=== PATIENT | female | born 1965 | race Caucasian/White ===

== ENCOUNTER 2017-12-24 06:58 | Day surgery (SDC) | payer BC ==
[2017-12-24] MEDS ORDERED: LIDOCAINE 2% MPF 5 ML VIAL ONE (07:18)
[2017-12-24] MEDS ORDERED: NA CHLORIDE 0.9% 500 ML ONE (07:19)
[2017-12-24] MEDS ORDERED: TETRACAINE HCL 0.5% 2ML OPTH ONE (07:19)
[2017-12-24] MEDS ORDERED: BUPIVACAINE 0.25% PF 10 ML VIAL ONE (07:19)
[2017-12-24] MEDS: PHENYLEPHRINE 10% OPTH 5ML ONE ×3 (07:21→07:37)
[2017-12-24] MEDS: CYCLOPENTOLATE 1% OPTH 2 ML ONE ×3 (07:21→07:37)
[2017-12-24] MEDS ORDERED: NS 0.9% VIAL 10 ML ONE (08:08)
[2017-12-24] MEDS ORDERED: EPINEPHRINE/PF 1 MG/ML AMP ONE (08:08)
[2017-12-24] MEDS ORDERED: DUOVISC 1 KIT OPTH ONE (08:09)
[2017-12-24] MEDS ORDERED: BALANCED SALT IRRIG PLAIN 500 ML BTL IRR ONE (08:09)
[2017-12-24] MEDS ORDERED: MOXIFLOXACIN HCL 10 DROPS/ML **OR USE OPTH ONE (08:10)
[2017-12-24] MEDS ORDERED: PROPOFOL 200 MG/20 ML VIAL IV ONE (08:20)
[2017-12-24] MEDS ORDERED: LIDOCAINE 2% INJ, MPF 2 ML 2 ML ONE (08:20)
--- NOTE | 2017-12-24 09:05 | P.BOP ---
Preoperative diagnosis: Polar cataract OS Postoperative diagnosis: Same Primary procedure: Phacoemulsification with IOL OS Estimated blood loss: None Anesthesia: Local (Subtenon's infusion for cataract surgery) Complications: None Implants: ZCB00 +22.5 Transferred to: Other (Day surgery) Condition: Good
--- NOTE | 2017-12-24 20:36 | OP ---
Date of Procedure: 12/24/2017 Surgeon: Amber Fitzpatrick MD Anesthesiologist: 1. Teodora Angela CRNA. 2. Rob Garcia MD. Preoperative Diagnosis: Posterior polar cataract, left eye. Operation Performed: Phacoemulsification with intraocular lens implant, left eye. Anesthesia: Per cataract surgery. Complications: None. Description Of Procedure: In day surgery, the patient was prepped with Betadine and draped. A conju nctival incision was made in the inferior nasal quadrant with Armand scissors. A sub-Tenon block c onsisting of a 1:1 mixture of 2% Xylocaine and 0.25% bupivacaine was placed through the conjunctival incision with a blunt cannula. A Honan balloon was placed over the eye and the patient was transferr ed to the operating room. In the operating room the patient was prepped and draped in the usual sterile fashion for ophthalmic surgery. A lid speculum was placed in the OS. Two paracentesis sites were made superiorly and infer iorly in the limbal cornea. Viscoat was placed in the anterior chamber and a crescent blade was used to make a corneal groove and tunnel, and a keratome was used to enter the anterior chamber. Provisc was placed in the anterior chamber and a 360 degree capsulotomy was performed with a cystitome. The lens was hydrodissected with BSS and rotated freely. The lens was removed with a stop and chop tech nique. 2.56 phaco CDE was used to remove the lens. Residual cortex was removed with the irrigation and aspiration. Provisc was placed in the capsular bag. A ZCB00 +22.5 lens was placed in the capsul ar bag without complications. Irrigation and aspiration was used to remove residual viscoelastic. T he paracentesis sites were hydrated with BSS. The wound and paracentesis sites were inspected and fo und to be watertight. Vigamox 0.07 cc was placed intracamerally at the end of the procedure. The ey e was irrigated with balanced salt solution. The eye was patched with a soft cotton patch and Schmitt me taya shield. The patient was returned to day surgery in good condition. Comments: The lens was hydrodelineated rather than hydrodissected. Discharge Instructions: Ms. Giles is discharged to home in good condition and is to follow up momo Fitzpatrick in the morning. JHL/MODL Voice ID: [id number] Report ID: [id number]
== END 2017-12-24 09:25 | disposition home or self-care (01) ==
LOC: OR 06:58
PROVIDERS: ATTEND Ophthalmology Retina Specialist
PROC: 08RK3JZ Replacement of Left Lens with Synthetic Substitute, Percutaneous Approach (ICD-10-PCS; principal; 2017-12-24 08:30)
DX: H25.042 Posterior subcapsular polar age-related cataract, left eye (principal); K21.9 Gastro-esophageal reflux disease without esophagitis; Z83.511 Family history of glaucoma; Z83.3 Family history of diabetes mellitus
CPT/HCPCS: J0171; J3490

== ENCOUNTER 2020-01-11 18:04 | Emergency (ER) | payer BC ==
--- OUTSIDE RECORDS SUMMARY | 2020-01-11 18:05 | XMS REPORT | Continuity of Care Document ---
:[address] [facility] t Address [address] [place] [address] Care Team Providers Name Role Phone Unavailable Unavailable Unavailable Payers Payer Name Policy Type Policy Number Effective Date Expiration Date S ource Problems This patient has no known problems. Allergies, Adverse Reactions, Alerts Allergy Allergy Status Severity Reaction(s) Onset Inactive Treating Comm ents Source Name Type Date Date Clinician No Known DA Active U [facility] 00:00: d [facility] 00 [facility] Medications This patient has no known medications. Procedures This patient has no known procedures. Results This patient has no known results.
[2020-01-11] MEDS ORDERED: PHENYLEPHRINE 0.5% NOSE 15ML NAS ONE (18:38)
--- NOTE | 2020-01-11 19:06 | EDPHYS ---
Physician Documentation [facility] Name: Cynthia Giles Age: 54 yrs Sex: Female : 1965 Arrival Date: 01/11/2020 Time: 18:06 Bed 13 Private MD: ED Physician Avery Hampton HPI: 01/10 18:20 This 54 yrs old Female presents to ER via EMS with complaints of Nose bleed. pm1 18:20 The patient presents with a nose bleed, causative factors include: previous HX of pm1 nosebleeds. Onset: The symptoms/episode began/occurred 2 hour(s) ago. Modifying factors: The symptoms are alleviated by nothing. the symptoms are aggravated by nothing. Associated signs and symptoms: The patient has no apparent associated signs or symptoms. Severity of symptoms: in the emergency department the symptoms are unchanged despite home interventions. The patient has experienced similar episodes in the past, a few times, with the last episode occurring 3 month(s) ago. 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 - Social history:: Smoking status: Patient reports the use of cigarette tobacco products, smokes one-half pack cigarettes per day. ROS: 18:22 Constitutional: Negative for fever, chills, and weight loss. pm1 18:22 Cardiovascular: Negative for chest pain, palpitations, and edema, Respiratory: Negative for shortness of breath, cough, wheezing, and pleuritic chest pain, Skin: Negative for injury, rash, and discoloration, Neuro: Negative for headache, weakness, numbness, tingling, and seizure. 18:22 ENT: Positive for nose bleed, Negative for sore throat. 18:22 Abdomen/GI: Negative for abdominal pain, nausea, vomiting, and diarrhea. Exam: 18:22 Constitutional: This is a well developed, well nourished patient who is awake, alert, pm1 and in no acute distress. Head/Face: Normocephalic, atraumatic. 18:22 Back: No spinal tenderness. No costovertebral tenderness. Full range of motion. Skin: Warm, dry with normal turgor. Normal color with no rashes, no lesions, and no evidence of cellulitis. MS/ Extremity: Pulses equal, no cyanosis. Neurovascular intact. Full, normal range of motion. 18:22 ENT: Nose: bleeding, is noted from both nares, and is minimal. 18:22 Cardiovascular: Exam negative for acute changes, Rate: normal, Rhythm: regular, Pulses: no pulse deficits are appreciated. 18:22 Respiratory: Exam negative for acute changes, respiratory distress, shortness of breath. 18:22 Neuro: Exam negative for acute changes, Orientation: is normal, Motor: is normal, moves all fours. Vital Signs: 18:15 BP 125 / 70; Pulse 90; Resp 16; Temp 97.6(TE); Pulse Ox 100% on R/A; Weight 58.97 kg; ss Height 5 ft. 4 in. (162.56 cm); Pain 0/10; 19:09 BP 120 / 62; Pulse 86; Resp 15 S; Pulse Ox 100% on R/A; ca1 18:15 Body Mass Index 22.31 (58.97 kg, 162.56 cm) ss MDM: 18:11 Patient medically screened. pm1 19:04 Data reviewed: vital signs. Data interpreted: Pulse oximetry: on room air is 100 %. pm1 Interpretation: normal. Counseling: I had a detailed discussion with the patient and/or guardian regarding: the historical points, exam findings, and any diagnostic results supporting the discharge/admit diagnosis, the need for outpatient follow up, to return to the emergency department if symptoms worsen or persist or if there are any questions or concerns that arise at home. 19:05 ED course: Patient without any further active bleeding with pressure application and pm1 Harvey-Synephrine administered. Patient happy with care and ready to go home. Administered Medications: 18:34 Drug: Harvey-Synephrine [place] 0.5 % 2 sprays Route: Intranasal; Site: both nares; ca1 19:10 Follow up: Response: No adverse reaction; Marked relief of symptoms ca1 Disposition: 01/11 06:42 Co-signature as Attending Physician, Avery Hampton MD I agree with the assessment and kdr plan of care. Disposition: 01/11/20 19:05 Discharged to Home. Impression: Epistaxis. - Condition is Stable. - Discharge Instructions: Nosebleed, Adult. - Medication Reconciliation Form, Thank You Letter, Antibiotic Education, Prescription Opioid Use form. - Follow up: Emergency Department; When: As needed; Reason: Worsening of condition. Follow up: Private Physician; When: As needed; Reason: Worsening of condition. - Problem is new. - Symptoms are resolved. Signatures: Avery Hampton MD MD [facility] Olga Mari RN RN ss Krish Seay NP GLASS INSPECTOR pm1 Latonya Mckoy RN RN ca1 Corrections: (The following items were deleted from the chart) 01/10 19:18 19:05 01/11/2020 19:05 Discharged to Home. Impression: Epistaxis. Condition is Stable. ca1 Forms are Medication Reconciliation Form, Thank You Letter, Antibiotic Education, Prescription Opioid Use. Follow up: Emergency Department; When: As needed; Reason: Worsening of condition. Follow up: Private Physician; When: As needed; Reason: Worsening of condition. Problem is new. Symptoms are resolved. pm1
--- NOTE | 2020-01-11 19:06 | ER ---
Nurse's Notes [facility] Name: Cynthia Giles Age: 54 yrs Sex: Female : 1965 Arrival Date: 01/11/2020 Time: 18:06 Bed 13 Private MD: Diagnosis: Epistaxis Presentation: 01/10 18:15 Chief complaint: Patient states: nose bleed that began at 1720 today. EMS states that ss blood was "flowing" L nare, but is now controlled on arrival. Coronavirus screen: Client denies travel out of the [place] in the last 14 days. Ebola Screen: Patient denies exposure to infectious person. Patient denies travel to an Ebola-affected area in the 21 days before illness onset. Initial Sepsis Screen: Does the patient meet any 2 criteria? No. Patient's initial sepsis screen is negative. Does the patient have a suspected source of infection? No. Patient's initial sepsis screen is negative. Risk Assessment: Do you want to hurt yourself or someone else? Patient reports no desire to harm self or others. Onset of symptoms was January 11, 2020. 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 - Social history:: Smoking status: Patient reports the use of cigarette tobacco products, smokes one-half pack cigarettes per day. Screenin:15 Abuse screen: Denies threats or abuse. Denies injuries from another. Nutritional ca1 screening: No deficits noted. Tuberculosis screening: No symptoms or risk factors identified. Fall Risk None identified. Assessment: 18:15 General: Appears in no apparent distress. comfortable, Behavior is calm, cooperative, ca1 appropriate for age. Pain: Denies pain. Neuro: Level of Consciousness is awake, alert, obeys commands, Oriented to person, place, time, situation. Cardiovascular: Heart tones S1 S2 present Capillary refill < 3 seconds Patient's skin is warm and dry. Respiratory: Airway is patent Respiratory effort is even, unlabored, Respiratory pattern is regular, symmetrical, Breath sounds are clear bilaterally. GI: Abdomen is flat, non-distended, Bowel sounds present X 4 quads. Abd is soft and non tender X 4 quads. : No signs and/or symptoms were reported regarding the genitourinary system. EENT: Nares with bleeding noted bilaterally. Derm: Skin is intact, is healthy with good turgor, Skin is pink, warm \\T\\ dry. Musculoskeletal: Circulation, motion, and sensation intact. Capillary refill < 3 seconds. 19:09 Reassessment: Patient appears in no apparent distress at this time. Patient and/or ca1 family updated on plan of care and expected duration. Pain level reassessed. Patient is alert, oriented x 3, equal unlabored respirations, skin warm/dry/pink. Vital Signs: 18:15 BP 125 / 70; Pulse 90; Resp 16; Temp 97.6(TE); Pulse Ox 100% on R/A; Weight 58.97 kg; ss Height 5 ft. 4 in. (162.56 cm); Pain 0/10; 19:09 BP 120 / 62; Pulse 86; Resp 15 S; Pulse Ox 100% on R/A; ca1 18:15 Body Mass Index 22.31 (58.97 kg, 162.56 cm) ED Course: 18:06 Patient arrived in ED. em1 18:11 Krish Seay NP is PHCP. pm1 18:11 Avery Hampton MD is Attending Physician. pm1 18:12 Olga Mari, RAFFY is Primary Nurse. ss 18:15 Patient has correct armband on for positive identification. Placed in gown. Bed in low ca1 position. Call light in reach. Side rails up X2. Pulse ox on. NIBP on. Warm blanket given. Ice pack to injury. 18:21 Triage completed. ss 18:21 Latonya Mckoy, RN is Primary Nurse. ca1 18:21 Arm band placed on right wrist. ss 19:18 No provider procedures requiring assistance completed. Patient did not have IV access ca1 during this emergency room visit. Administered Medications: 18:34 Drug: Harvey-Synephrine [place] 0.5 % 2 sprays Route: Intranasal; Site: both nares; ca1 19:10 Follow up: Response: No adverse reaction; Marked relief of symptoms ca1 Outcome: 19:05 Discharge ordered by . pm1 19:18 Discharged to home ambulatory, with family. ca1 19:18 Condition: stable 19:18 Discharge instructions given to patient, Instructed on discharge instructions, follow up and referral plans. Demonstrated understanding of instructions, follow-up care. 19:18 Patient left the ED. ca1 Signatures: Kofi Reis em1 Olga Mari, RAFFY RN ss Krish Seay, FLIGHT OPERATION COORDINATOR FLIGHT OPERATION COORDINATOR pm1 Latonya Mckoy RN RN ca1
[2020-01-11 19:30] VITALS: TEMP 97.6; O2SAT 100
[2020-01-11 19:31] VITALS: BP 120/62
== END 2020-01-11 19:18 | disposition home or self-care (01) ==
LOC: ER 18:04
DX: R04.0 Epistaxis (principal); F17.210 Nicotine dependence, cigarettes, uncomplicated
CPT/HCPCS: 99283

== ENCOUNTER 2020-09-14 10:35 | Emergency (ER) | payer BC ==
--- OUTSIDE RECORDS SUMMARY | 2020-09-14 11:21 | XMS REPORT | Continuity of Care Document ---
:1965 Author Organization [facility] t Address [address] [place] [address] Care Team Providers Name Role Phone Unavailable Unavailable Unavailable Payers Payer Name Policy Type Policy Number Effective Date Expiration Date S ource Problems This patient has no known problems. Allergies, Adverse Reactions, Alerts Allergy Allergy Status Severity Reaction(s) Onset Inactive Treating Comm ents Source Name Type Date Date Clinician No Known DA Active U [facility] 00:00: d [facility] 00 [facility] Medications This patient has no known medications. Procedures This patient has no known procedures. Results This patient has no known results.
[2020-09-14 11:25] LABS: Basophils % 1.4 % (0-1.3); Hematocrit 34.5 % (36.0-45.0); Lymphocytes % 34.4 % (15.3-44.8); MPV 7.7 fL (7.6-11.3); RBC Red Blood Cell Count 4.18 M/uL (3.86-4.86)
[2020-09-14] MEDS ORDERED: LIDOCAINE 1% MPF 5 ML VIAL ONE (11:26)
[2020-09-14 11:46] LABS: ALT/SGPT 34 U/L (12-78); AST/SGOT 88 U/L (15-37); Albumin 3.8 g/dL (3.4-5.0); Alkaline Phosphatase 136 U/L (45-117); BUN Blood Urea Nitrogen 7 mg/dL (7-18); Bicarbonate 24 mmol/L (21-32); Bilirubin Total 0.8 mg/dL (0.2-1.0); Glucose Level 112 mg/dL (74-106); Potassium 3.9 mmol/L (3.5-5.1); Protein, Total 8.4 g/dL (6.4-8.2); Sodium Level 140 mmol/L (136-145)
[2020-09-14 12:16] LABS: Protime INR 1.05
--- NOTE | 2020-09-14 12:23 | ER ---
Nurse's Notes [facility] Name: Cynthia Giles Age: 55 yrs Sex: Female : 1965 Arrival Date: 09/14/2020 Time: 10:35 Bed 15 Private MD: Diagnosis: Laceration without foreign body of finger without damage to nail-LEFT INDEX Presentation: 09/14 10:46 Chief complaint: Patient states: stated that she cut off a piece of a bump from her sv left index finger today and the bleeding hasn't stopped since. Stated yesterday her lips started bleeding and today noticed blood in her mouth. Pt's lips are reddened and eyes are reddened. Coronavirus screen: Client denies travel out of the [place] in the last 14 days. At this time, the client does not indicate any symptoms associated with coronavirus-19. Ebola Screen: No symptoms or risks identified at this time. Complicating Factors: There are no complicating factors for this patient. Initial Sepsis Screen: Does the patient meet any 2 criteria? No. Patient's initial sepsis screen is negative. Does the patient have a suspected source of infection? No. Patient's initial sepsis screen is negative. Risk Assessment: Do you want to hurt yourself or someone else? Patient reports no desire to harm self or others. Onset of symptoms was September 14, 2020. 10:46 Method Of Arrival: Ambulatory sv 10:46 Acuity: CHRISTOFER 3 sv Triage Assessment: 10:48 General: Appears in no apparent distress. comfortable, Behavior is calm, cooperative, sv appropriate for age. Pain: Denies pain. Neuro: Level of Consciousness is awake, alert, obeys commands, Oriented to person, place, time, situation, Gait is steady, Speech is normal. Respiratory: Respiratory effort is even, unlabored. Injury Description: Laceration sustained to palmar aspect of distal phalanx of left index finger is 0.5 to 2.5 cm long, is bleeding a small amount. Historical: - Allergies: 10:48 No Known Allergies; sv - PMHx: 10:48 Anemia; sv - PSHx: 10:48 Back; sv - Immunization history:: Client reports receiving the 2nd dose of the Covid vaccine, Client reports receiving the 1st dose of the Covid vaccine. - Social history:: Smoking status: Patient reports the use of cigarette tobacco products, denies chronic smoking, but will smoke occasionally. - Family history:: not pertinent. Screenin:35 Abuse screen: Denies threats or abuse. Denies injuries from another. Nutritional ph screening: No deficits noted. Tuberculosis screening: No symptoms or risk factors identified. Fall Risk None identified. Assessment: 11:27 General: Appears in no apparent distress. comfortable, well groomed, Behavior is calm, ph cooperative, appropriate for age, Denies fever, feeling ill. Pain: Complains of pain in palmar aspect of distal phalanx of left index finger. Neuro: Level of Consciousness is awake, alert, obeys commands, Oriented to person, place, time, situation. Cardiovascular: Capillary refill < 3 seconds in bilateral fingers Patient's skin is warm and dry. Respiratory: Airway is patent Respiratory effort is even, unlabored, Respiratory pattern is regular, symmetrical. GI: Abdomen is round Patient currently denies abdominal pain, diarrhea, nausea, vomiting. EENT: Sclera/Cornea are reddened in right eye and left eye lips appear dry and have dries blood present, tongue darkened in appearance. Derm: Skin is healthy with good turgor, Skin is pink, warm \T\ dry. Musculoskeletal: Circulation, motion, and sensation intact. Range of motion: intact in all extremities. Injury Description: Laceration sustained to palmar aspect of distal phalanx of left index finger. Vital Signs: 10:46 BP 123 / 64; Pulse 85; Resp 16; Temp 98.2; Pulse Ox 100% ; Weight 58.97 kg; Height 5 sv ft. 4 in. (162.56 cm); Pain 0/10; 11:57 BP 125 / 67; Pulse 77; Resp 18; Pulse Ox 98% on R/A; ph 10:46 Body Mass Index 22.31 (58.97 kg, 162.56 cm) sv ED Course: 10:35 Patient arrived in ED. rg4 10:40 Teodora Osman RN is Primary Nurse. ph 10:45 Figueroa Erazo MD is Attending Physician. claudia 10:47 Triage completed. sv 10:48 Arm band placed on. sv 11:14 Inserted saline lock: 20 gauge in right antecubital area, using aseptic technique. ph Blood collected. 11:35 Patient has correct armband on for positive identification. Placed in gown. Bed in low ph position. Call light in reach. Side rails up X 1. Pulse ox on. NIBP on. Door closed. Noise minimized. Warm blanket given. 12:23 Joseph Tran MD is Referral Physician. [facility] 12:40 Referral Physician role handed off by Joseph Tran MD [facility] 12:40 Masood Dickinson MD is Referral Physician. [facility] 12:40 Mary Godoy MD is Referral Physician. [facility] 12:46 Assist provider with laceration repair on palmar aspect of distal phalanx of left index ph finger that was 2.5 cm. or less using sutures. Set up tray. Performed by Figueroa Erazo MD Dressed with band aid, Patient tolerated well. IV discontinued, intact, bleeding controlled, No redness/swelling at site. Pressure dressing applied. Administered Medications: 12:24 Not Given (Duplicate Order): Lidocaine (1 %) 5 mg Infiltration once [facility] 12:40 Drug: Bactroban (mupirocin) Ointment 2 % 1 application Route: Topical; Site: affected jl7 area; Outcome: 12:23 Discharge ordered by . [facility] 12:47 Discharged to home ambulatory. 12:47 Condition: good 12:47 Discharge instructions given to patient, Instructed on discharge instructions, follow up and referral plans. medication usage, Demonstrated understanding of instructions, follow-up care, medications. 12:50 Patient left the ED. ph Signatures: Blanca Pandey, Figueroa Hernandez RN, MD MD cha Hall, Patricia, RN RN ph Garcia, Rubi 4 Alecia Turk RN RN [id number]
--- NOTE | 2020-09-14 12:24 | EDPHYS ---
Physician Documentation [facility] Name: Cynthia Giles Age: 55 yrs Sex: Female : 1965 Arrival Date: 09/14/2020 Time: 10:35 Bed 15 Private MD: JOSIE Physician Figueroa Erazo HPI: 09/14 12:07 This 55 yrs old Female presents to ER via Ambulatory with complaints of claudia Laceration To Hand. 12:07 The patient has a laceration related to: CUTTED OFF SKIN SPOT. The laceration(s) claudia is(are) located on the palmar aspect of distal phalanx of left index finger. Onset: The symptoms/episode began/occurred just prior to arrival. Associated signs and symptoms: The patient has no apparent associated signs or symptoms. The patient has not experienced similar symptoms in the past. Historical: - Allergies: 10:48 No Known Allergies; sv - PMHx: 10:48 Anemia; sv - PSHx: 10:48 Back; sv - Immunization history:: Client reports receiving the 2nd dose of the Covid vaccine, Client reports receiving the 1st dose of the Covid vaccine. - Social history:: Smoking status: Patient reports the use of cigarette tobacco products, denies chronic smoking, but will smoke occasionally. - Family history:: not pertinent. ROS: 12:07 Constitutional: Negative for fever, chills, and weight loss, Eyes: Negative for injury, claudia pain, redness, and discharge, Neck: Negative for injury, pain, and swelling, Cardiovascular: Negative for chest pain, palpitations, and edema, Respiratory: Negative for shortness of breath, cough, wheezing, and pleuritic chest pain, Abdomen/GI: Negative for abdominal pain, nausea, vomiting, diarrhea, and constipation, Back: Negative for injury and pain, : Negative for injury, bleeding, discharge, and swelling, Skin: Negative for injury, rash, and discoloration, Neuro: Negative for headache, weakness, numbness, tingling, and seizure, Psych: Negative for depression, anxiety, suicide ideation, homicidal ideation, and hallucinations, Allergy/Immunology: Negative for hives, rash, and allergies, Endocrine: Negative for neck swelling, polydipsia, polyuria, polyphagia, and marked weight changes. 12:07 ENT: Positive for TONGUE HEMATOMA. Exam: 12:07 Constitutional: This is a well developed, well nourished patient who is awake, alert, claudia and in no acute distress. Head/Face: Normocephalic, atraumatic. Eyes: Pupils equal round and reactive to light, extra-ocular motions intact. Lids and lashes normal. Conjunctiva and sclera are non-icteric and not injected. Cornea within normal limits. Periorbital areas with no swelling, redness, or edema. Neck: Trachea midline, no thyromegaly or masses palpated, and no cervical lymphadenopathy. Supple, full range of motion without nuchal rigidity, or vertebral point tenderness. No Meningismus. Chest/axilla: Normal chest wall appearance and motion. Nontender with no deformity. No lesions are appreciated. Cardiovascular: Regular rate and rhythm with a normal S1 and S2. No gallops, murmurs, or rubs. Normal PMI, no JVD. No pulse deficits. Respiratory: Lungs have equal breath sounds bilaterally, clear to auscultation and percussion. No rales, rhonchi or wheezes noted. No increased work of breathing, no retractions or nasal flaring. Abdomen/GI: Soft, non-tender, with normal bowel sounds. No distension or tympany. No guarding or rebound. No evidence of tenderness throughout. Back: No spinal tenderness. No costovertebral tenderness. Full range of motion. Skin: Warm, dry with normal turgor. Normal color with no rashes, no lesions, and no evidence of cellulitis. Neuro: Awake and alert, GCS 15, oriented to person, place, time, and situation. Cranial nerves II-XII grossly intact. Motor strength 5/5 in all extremities. Sensory grossly intact. Cerebellar exam normal. Normal gait. Psych: Awake, alert, with orientation to person, place and time. Behavior, mood, and affect are within normal limits. 12:07 ENT: Mouth: Tongue: is swollen, tender. Vital Signs: 10:46 BP 123 / 64; Pulse 85; Resp 16; Temp 98.2; Pulse Ox 100% ; Weight 58.97 kg; Height 5 sv ft. 4 in. (162.56 cm); Pain 0/10; 11:57 BP 125 / 67; Pulse 77; Resp 18; Pulse Ox 98% on R/A; ph 10:46 Body Mass Index 22.31 (58.97 kg, 162.56 cm) sv Laceration: 12:38 Wound Repair of .0cm ( 0.0in ) subcutaneous laceration to palmar aspect of distal claudia phalanx of left index finger. Irregularly shaped.. Distal neuro/vascular/tendon intact. Anesthesia: Local anesthetic administered with 2 mls of 1% lidocaine. Wound prep: Simple cleansing by me. Skin closed with 1 6-0 Prolene using FIGURE 8. Dressed with Neosporin. Patient tolerated well. MDM: 10:45 Patient medically screened. [facility] 12:12 Differential diagnosis: superficial laceration. Data reviewed: vital signs, nurses [facility] notes, lab test result(s). Data interpreted: nuclear monitoring technician: rate is 77 beats/min, rhythm is regular, Pulse oximetry: on room air is 98 %. Counseling: I had a detailed discussion with the patient and/or guardian regarding: the historical points, exam findings, and any diagnostic results supporting the discharge/admit diagnosis, lab results. 09/14 11:00 Order name: CBC with Diff [facility] 09/14 11:00 Order name: Comprehensive Metabolic Panel; Complete Time: 11:50 [facility] 09/14 11:00 Order name: PT-INR; Complete Time: 12:23 [facility] 09/14 12:19 Order name: CBC Smear Scan EDMS 09/14 11:00 Order name: Dressing - Wound; Complete Time: 12:40 [facility] 09/14 11:00 Order name: Gloves, Sterile; Complete Time: 11:27 [facility] 09/14 11:00 Order name: Prolene, Sutures; Complete Time: 11:27 [facility] 09/14 11:00 Order name: Setup Suture Tray; Complete Time: 11:27 [facility] 09/14 12:24 Order name: Wound Care; Complete Time: 12:40 [facility] Administered Medications: 12:24 Not Given (Duplicate Order): Lidocaine (1 %) 5 mg Infiltration once [facility] 12:40 Drug: Bactroban (mupirocin) Ointment 2 % 1 application Route: Topical; Site: affected jl7 area; Disposition Summary: 09/14/20 12:23 Discharge Ordered Location: Home claudia Problem: new claudia Symptoms: have improved claudia Condition: Stable claudia Diagnosis - Laceration without foreign body of finger without damage to nail - LEFT INDEX claudia Followup: clauida - With: Private Physician - When: 2 - 3 days - Reason: Recheck today's complaints, Continuance of care, Re-evaluation by your physician Followup: claudia - With: Joseph Tran MD - When: 2 - 3 days - Reason: Recheck today's complaints, Re-evaluation by your physician Followup: claudia - With: Masood Dickinson MD - When: 2 - 3 days - Reason: Recheck today's complaints, Re-evaluation by your physician Followup: claudia - With: Mary Godoy MD - When: 2 - 3 days - Reason: Recheck today's complaints, Re-evaluation by your physician Discharge Instructions: - Discharge Summary Sheet claudia - Alcohol Use Disorder claudia - Laceration Care, Adult claudia - Nonsutured Laceration Care claudia - Laceration Care, Adult, [id number] claudia - Alcohol Abuse and Nutrition claudia Forms: - Medication Reconciliation Form claudia - Thank You Letter claudia - Antibiotic Education claudia - Prescription Opioid Use claudia 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
[2020-09-14 12:49] LABS: White Blood Cell Scan OK (OK)
[2020-09-14 12:52] LABS: Blood Morphology Comment NOTED (NOT SEEN); Platelet Estimate ADEQ; Target Cells 1+
[2020-09-14 12:53] LABS: Anisocytosis 1+
[2020-09-14] MEDS ORDERED: MUPIROCIN 2% OINT 22GM TUBE TOP ONE (12:58)
[2020-09-14 13:00] VITALS: TEMP 98.2
[2020-09-14 13:01] VITALS: BP 125/67; O2SAT 98
== END 2020-09-14 12:50 | disposition home or self-care (01) ==
LOC: ER 10:35
PROC: 0JQK0ZZ Repair Left Hand Subcutaneous Tissue and Fascia, Open Approach (ICD-10-PCS; principal; 2020-09-14)
DX: S61.211A Laceration without foreign body of left index finger without damage to nail, initial encounter (principal); W26.0XXA Contact with knife, initial encounter; F17.210 Nicotine dependence, cigarettes, uncomplicated
CPT/HCPCS: 36415; 80053; 85025; 85610; 99284

== ENCOUNTER 2021-05-15 23:05 | Emergency (ER) | payer BC ==
--- OUTSIDE RECORDS SUMMARY | 2021-05-15 23:09 | XMS REPORT | Continuity of Care Document ---
:1965 Author Organization [facility] t Address [address] [place] [address] Care Team Providers Name Role Phone Pcp, Does Not Have A Primary Care Physician Dany Attending Clinician Unavailable Khloe Attending Clinician [phone] MD BIRD RIZVI Attending Clinician Unavailable Roberth AKBAR, T Attending Clinician Unavailable Only, Db Test Attending Clinician Unavailable Kalpesh STEVENS Attending Clinician KALPESH Attending Clinician Unavailable Doctor Unassigned, Name Attending Clinician Unavailable GAURI Attending Clinician Unavailable Petra Rodriguez Attending Clinician Unavailable Dany Admitting Clinician Unavailable KHLOE Admitting Clinician Unavailable MD BIRD RIZVI Admitting Clinician Unavailable Physician, Primary or Family Admitting Clinician Unavailabl e Payers Payer Name Policy Type Policy Number Effective Date Expiration Date S [place] [id number] 2016 00:00:00 [place] Problems This patient has no known problems. Allergies, Adverse Reactions, Alerts Allergy Allergy Status Severity Reaction(s) Onset Inactive Treating Comm ents Source Name Type Date Date Clinician No Known DA Active U [facility]18 [place] [facility] 00:00: d [address] NO KNOWN Drug Active Univers [facility] Class ity of [facility] Social History Social Habit Start Date Stop Date Quantity Comments Source Exposure to Yes [facility] SARS-CoV-2 (event) Medica l Branch Sex Assigned At [birth year] [facility] 00:00:00 00:00:00 Medical Branch Smoking Status Start Date Stop Date Source Unknown if ever smoked [facility] Medications This patient has no known medications. Immunizations Ordered Filled Immunization Date Status Comments Sour e Immunization Name Name SARS-COV-2 COVID-19 2020-06-19 Completed Unive rsity of PFIZER VACCINE 00:00:00 [facility] SARS-COV-2 COVID-19 2020-06-19 Completed Unive rsity of PFIZER VACCINE 00:00:00 [facility] SARS-COV-2 COVID-19 2020-06-19 Completed Unive rsity of PFIZER VACCINE 00:00:00 [facility] SARS-COV-2 COVID-19 2020-06-19 Completed Unive rsity of PFIZER VACCINE 00:00:00 [facility] SARS-COV-2 COVID-19 2020-05-29 Completed Unive rsity of PFIZER VACCINE 00:00:00 [facility] SARS-COV-2 COVID-19 2020-05-29 Completed Unive rsity of PFIZER VACCINE 00:00:00 [facility] SARS-COV-2 COVID-19 2020-05-29 Completed Unive rsity of PFIZER VACCINE 00:00:00 [facility] SARS-COV-2 COVID-19 2020-05-29 Completed Unive rsity of PFIZER VACCINE 00:00:00 [facility] Procedures Procedure Date / Time Performed Performing Clinician Sour e ASSIGNMENT OF BENEFITS 2020-11-03 20:45:37 Doctor Unassigned, No [facility] Name Medical Branch Encounters Start End Encounter Admission Attending Care Care Encounter Source Date/Time Date/Time Type Type Clinicians Facility Department ID 2021-04-27 2021-04-27 Outpatient [facility]on[facility]L [facility] [id number] [place] 03:41:00 03:41:00 [facility] 2021-04-22 2021-04-22 Outpatient [facility] [id number] [place] 12:02:00 12:02:00 [facility] 2021-04-21 2021-04-21 Outpatient [facility]L [facility] [id number] [place] 09:22:00 09:22:00 [facility] 2021-04-20 2021-04-20 Outpatient [facility]on[facility]L [facility] [id number] [place] 10:55:00 10:55:00 [facility] 2021-04-19 2021-04-19 Outpatient [facility]on[facility]L [facility] [id number] [place] 04:14:00 04:14:00 [facility] 2021-04-18 2021-04-18 Outpatient [facility]on[facility]L [facility] [id number] [place] 02:09:00 02:09:00 [facility] 2021-04-18 2021-04-18 Outpatient Doss, [facility] [id number] 00:00:00 00:00:00 Yue [id number] 2021-04-14 2021-04-14 Outpatient [facility]on[facility]L [facility] [id number] [place] 03:15:00 03:15:00 [facility] 2021-04-12 2021-04-12 Outpatient [facility]on[facility]L [facility] [id number] [place] 11:34:00 11:34:00 [facility] 2021-04-11 2021-04-11 Outpatient [facility]on[facility]L [facility] [id number] [place] 02:58:00 02:58:00 [facility] 2021-04-05 2021-04-05 Outpatient [facility]on[facility]L [facility] [id number] [place] 05:56:00 05:56:00 [facility] 2021-04-04 2021-04-04 Outpatient [facility]on[facility]L [facility] [id number] [place] 01:59:00 01:59:00 [facility] 2021-04-04 2021-04-04 Outpatient Doss, [facility] [id number] 00:00:00 00:00:00 Yue [id number] 2021-03-29 2021-03-29 Outpatient [facility]on[facility]L [facility] [id number] [place] 04:18:00 04:18:00 [facility] 2021-03-23 2021-03-23 Outpatient [facility]on[facility]L [facility] [id number] [place] 11:43:00 11:43:00 [facility] 2021-03-22 2021-03-22 Outpatient [facility]on_L [facility] [id number] [place] 10:49:00 10:49:00 [facility] 2021-03-21 2021-03-21 Outpatient [facility]heson_L [facility] [id number] [place] 02:55:00 02:55:00 [facility] 2021-03-20 2021-03-20 Outpatient [facility]on_L [facility] [id number] [place] 01:01:00 01:01:00 [facility] 2021-03-15 2021-03-15 Outpatient [facility]on[facility]L [facility] [id number] [place] 04:15:00 04:15:00 [facility] 2021-03-14 2021-03-14 Outpatient [facility]on_L [facility] [id number] [place] 03:52:00 03:52:00 [facility] 2021-03-14 2021-03-14 Outpatient Khloe, [facility] [id number] 00:00:00 00:00:00 Yue [id number] 2021-03-07 2021-03-07 Outpatient [facility]on[facility]L [facility] [id number] [place] 03:33:00 03:33:00 [id number] [facility] 2021-02-17 2021-02-17 Outpatient [facility]on_L [facility] [id number] [place] 05:12:00 05:12:00 [id number] [facility] 2021-02-11 2021-02-11 Outpatient [facility]on_L [facility] [id number] [place] 03:07:00 03:07:00 [id number] [facility] 2021-02-09 2021-02-09 Outpatient [facility]on_L [facility] [id number] [place] 02:56:00 02:56:00 [id number] [facility] 2021-02-08 2021-02-08 Outpatient [facility]on_L [facility] [id number] [place] 02:22:00 02:22:00 [id number] [facility] 2021-02-08 2021-02-08 Outpatient Khloe, [facility] [id number] 00:00:00 00:00:00 Yue [id number] 2021-01-27 2021-01-27 Outpatient [facility]on[facility]L [facility] [id number] [place] 11:17:00 11:17:00 [id number] [facility] 2021-01-26 2021-01-27 Outpatient KHLOE, [place] [id number] [place] 00:00:00 00:00:00 YUE [address] 2021-01-21 2021-01-21 Outpatient KHLOE, [facility] [id number] [place] 00:00:00 00:00:00 YUE [address] 2021-01-19 2021-01-19 Outpatient [facility]heson_L [facility] [id number] [place] 10:01:00 10:01:00 [id number] [facility] 2021-01-04 2021-01-04 Outpatient [facility]on_L [facility] [id number] [place] 09:30:00 09:30:00 [id number] [facility] 2021-01-04 2021-01-04 Outpatient [facility]on_L [facility] [id number] [place] 09:28:00 09:28:00 [id number] [facility] 2021-01-03 2021-01-03 Outpatient [facility]heson_L [facility] [id number] [place] 01:48:00 01:48:00 [id number] [facility] 2021-01-03 2021-01-03 Outpatient Doss, [facility] [id number] 00:00:00 00:00:00 Yue [id number] 2020-12-30 2020-12-30 Outpatient [facility]on_L [facility] [id number] [place] 10:56:00 10:56:00 [id number] [facility] 2020-12-29 2020-12-29 Outpatient Khloe, [facility] [id number] 00:00:00 00:00:00 Yue [id number] 2020-12-29 2020-12-29 Outpatient KHLOE, [facility] [id number] [place] 00:00:00 00:00:00 YUE [address] 2020-12-28 2020-12-28 [facility] [id number] [place] 00:00:00 00:00:00 YUE [address] 2020-12-27 2020-12-27 Outpatient [facility]on_L [facility] [id number] [place] 04:08:00 04:08:00 [id number] [facility] 2020-12-24 2020-12-24 Outpatient [facility]on_L [facility] [id number] [place] 12:45:00 12:45:00 [id number] [facility] 2020-12-23 2020-12-23 Outpatient [facility]on_L [facility] [id number] [place] 03:22:00 03:22:00 [id number] [facility] 2020-12-23 2020-12-23 Outpatient Khloe, [facility] [id number] 00:00:00 00:00:00 Yue [id number] 2020-12-20 2020-12-20 Outpatient [facility]heson_L [facility] [id number] [place] 12:00:00 12:00:00 [id number] [facility] 2020-12-20 2020-12-20 Outpatient Matheson_L [facility] [id number] [place] 12:00:00 12:00:00 [id number] [facility] 2020-12-20 2020-12-20 Outpatient Doss, [facility] [id number] 00:00:00 00:00:00 Yue [id number] 2020-12-16 2020-12-16 Outpatient Matheson_L [facility] [id number] [place] 09:28:00 09:28:00 [id number] [facility] 2020-12-14 2020-12-14 Outpatient [facility]on[facility]L [facility] [id number] [facility] [place] 04:46:00 04:46:00 [facility] 2020-12-14 2020-12-14 Outpatient [facility]on[facility]L [facility] [id number] [facility] [place] 04:46:00 04:46:00 [facility] 2020-12-14 2020-12-14 Outpatient Doss, [facility] [id number] 00:00:00 00:00:00 Yue [id number] 2020-12-13 2020-12-13 Outpatient [facility]on[facility]L [facility] [id number] [facility] [place] 11:28:00 11:28:00 [id number] [facility] 2020-11-05 2020-11-05 Letter WATSON Lepe [id number] Univers 00:00:00 00:00:00 (Out) Vianney CANALES 350.1.13.10 it y of [facility] [id number] Jose Luis as [phone] [address] 2020-11-03 2020-11-03 Laboratory Only, Ang Db Test [facility] [id number] Univers 15:47:19 16:02:19 Only Kalpesh Ant [facility] 350.1.13.10 ity of [place] 4.2.7.2.686 Jose Luis as Kang?Blea [phone] [address] Medical [facility] 2020-11-03 2020-11-03 Outpatient R KALPESH [facility] [id number] [facility] 15:40:00 15:40:00 ANT [facility] 2020-11-03 2020-11-03 Orders Doctor CHAUDHARI [id number] [facility] 00:00:00 00:00:00 Only Unassigned, PARKER [id number] ity of [place] [facility] [id number] Jose Luis as [id number] [address] 2020-10-12 2020-10-12 Outpatient Petra ASTORGA [facility] [id number] [facility] 10:40:00 10:43:24 EVERARDO ity [facility] 2020-05-18 2020-05-18 Outpatient SAM Rodriguez [facility] [id number] [facility] 12:00:00 12:00:00 Tereza [id number] [facility] Results Test Description Test Time Test Comments Results Result Comments Source SARS-CoV-2 (COVID-19) RNA [Presence] in Respiratory sp ecimen by 2021-01-21 21:04:02 AIDEN with probe detection Test Item Value Reference Range Interpretation Comme nts SARS-CoV-2 (COVID-19) RNA [Presence] in Respiratory Not detected No t-Detected specimen by AIDEN with probe detection (test code = 70443-0) Whether patient is employed in a healthcare setting (test code = 77235-3) Whether the patient has symptoms related to condition of interest (test code = 12983-8) Patient was hospitalized because of this condition (test code = 00045-7) Whether the patient was admitted to intensive care unit (ICU) for condition of interest (test code = 81730-2) Whether patient resides in a congregate care setting (test code = 50282-3) SARS-CoV-2 (COVID-19) RNA [Presence] in Respiratory specimen by AIDEN with probe [id number] 21:14:12 Test Item Value Reference Range Interpretation Comments SARS-CoV-2 (COVID-19) RNA Not detected Not-Detected [Presence] in Respiratory specimen by AIDEN with probe detection (test code = 11018-6) Whether patient is employed in a healthcare setting (test code = 74426-2) Whether the patient has symptoms related to condition of interest (test code = 15676-5) Patient was hospitalized because of this condition (test code = 96918-2) Whether the patient was admitted to intensive care unit (ICU) for condition of interest (test code = 33435-6) Whether patient resides in a congregate care setting (test code = 78428-7)
[2021-05-16 00:10] LABS: Urine Blood Trace-intact (Negative); Urine Glucose Negative (Negative); Urine Protein Negative (Negative); Urine Specific Gravity <=1.005 (1.005-1.030); Urine pH 5.5 (5.0-7.0)
[2021-05-16 00:28] LABS: Hematocrit 30.8 % (36.0-45.0); MPV 8.2 fL (7.6-11.3); RBC Red Blood Cell Count 4.49 M/uL (3.86-4.86)
[2021-05-16 00:32] LABS: Barbiturates NEGATIVE (NEGATIVE); Benzodiazepines NEGATIVE (NEGATIVE); Cocaine NEGATIVE (NEGATIVE); METHAMPHETAM NEGATIVE (NEGATIVE); Methadone NEGATIVE (NEGATIVE); Opiates NEGATIVE (NEGATIVE); Phencyclidine NEGATIVE (NEGATIVE); THC Cannibis NEGATIVE (NEGATIVE)
[2021-05-16 00:34] LABS: ALT/SGPT 31 U/L (12-78); AST/SGOT 71 U/L (15-37); Albumin 4.2 g/dL (3.4-5.0); Alkaline Phosphatase 154 U/L (45-117); BUN Blood Urea Nitrogen 9 mg/dL (7-18); Bicarbonate 22 mmol/L (21-32); Bilirubin Direct 0.4 mg/dL (0-0.2); Bilirubin Total 0.9 mg/dL (0.2-1.0); Glucose Level 99 mg/dL (74-106); Potassium 3.1 mmol/L (3.5-5.1); Protein, Total 8.9 g/dL (6.4-8.2); Sodium Level 140 mmol/L (136-145)
[2021-05-16 00:47] LABS: Protime INR 1.04
[2021-05-16 01:25] LABS: Anisocytosis 1+; Blood Morphology Comment NOTED (NOT SEEN); Hypochromasia 1+; Platelet Estimate ADEQ
[2021-05-16] MEDS ORDERED: NA CHLORIDE 0.9% 1,000 ML ONE (03:32)
[2021-05-16] MEDS ORDERED: POTASSIUM 25 MEQ EFFERV TAB ONE (03:54)
--- NOTE | 2021-05-16 10:47 | ER ---
Nurse's Notes [facility] Name: Cynthia Giles Age: 55 yrs Sex: Female : 1965 Arrival Date: 05/15/2021 Time: 23:09 Bed 20 Private MD: Diagnosis: Alcohol abuse with intoxication;Suicidal ideation, now resolved Presentation: 05/15 23:00 Chief complaint: EMS states: Called for patient with suicidal ideations, expressed plan lp1 of overdose, patient reports recent of mother on 05/01/21, feeling alone. 23:00 Coronavirus screen: At this time, the client does not indicate any symptoms associated lp1 with coronavirus-19. Ebola Screen: No symptoms or risks identified at this time. Risk Assessment: Do you want to hurt yourself or someone else? Patient reports desire/thoughts of hurting themselves or someone else. Provider notified. Onset of symptoms was May 15, 2021. 23:00 Method Of Arrival: EMS: [facility] lp1 23:00 Acuity: [facility] 2 lp1 23:00 Chief complaint: EMS states: Patient called us for a possible overdose on Prozac, when vc1 we got there she said she didn't take more than she was prescribed. She lost her mom about a week ago and her niece not long ago either to a MVC. She did say she was having thoughts or harming herself a little. 23:31 Note Patient reports "I have about 5 rum and cokes tonight". lp1 05/16 05:52 Initial Sepsis Screen: Does the patient meet any 2 criteria? Does the patient have a sv1 suspected source of infection? No. Patient's initial sepsis screen is negative. Triage Assessment: 05:51 General: Appears distressed, uncomfortable, well groomed. Pain: Denies pain. sv1 05:51 General: Behavior is anxious, crying. 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 - Social history:: Smoking status: Patient reports the use of cigarette tobacco products, smokes one-half pack cigarettes per day. Screenin:31 Abuse screen: Denies threats or abuse. Denies injuries from another. Nutritional lp1 screening: No deficits noted. Tuberculosis screening: No symptoms or risk factors identified. Fall Risk None identified. Assessment: 05/16 05:17 Reassessment: The patient arrived at [facility]. She was alternating between sv1 happy and sad. Her [place] suicide farm ws completed. Saline and labs were completed. The safety scientist flow sheet is up to date, Currently her attitude appears happier. She interacts well with others. Follows simple commands well. IV fluids tolerated well. . 08:44 Reassessment: Pt is aaox4, ambulatory to restroom and back, strong steady gait. Pt eo2 denies any SI/HI at this time, denies pain. Pt updated on plan, verbalized understanding. Comfort measures met, will continue to monitor. 10:00 Reassessment: ETOH drawn, breakfast tray provided. eo2 12:25 Reassessment: Pt denies SI/HI, remains calm and cooperative. Pt to go home with family. eo2 Psych: 05/15 23:00 [place] Suicide Severity Screening: In the past month, have you wished you were lp1 or wished you could go to sleep and not wake up? Patient responds "yes." Based off the client's responses additional C-SSRS screening is required. "In the past month, have you actually had any thoughts of killing yourself?" Patient responds "yes." Based off the client's response additional [place] suicide severity screening questions to be further documented on paper forms. "In your lifetime, have you ever done anything, started to do anything, or prepared to do anything to end your life?" Patient responds "no." Reports recent of mother on 05/01/21. 23:00 Subjective: Patient's mood is sad, Delusions are denied, Hallucinations are denied lp1 Having thoughts of suicide. Plan for suicide is Reports thoughts of overdosing on home medications. Objective: Patient is cooperative, Speech is normal, Affect is appropriate. Interventions: Removed personal items and placed in bag. Searched person for dangerous items. Urine collected and sent for urine drug test. Belonging list filled out. Safety Checks: Personal items have been removed. Door is open. No visitors are present at this time. Pt denies substance abuse. 05/16 05:52 Commitment: Patient will be a voluntary commitment. sv1 08:44 [place] Suicide Severity Screening:. eo2 Vital Signs: 05/15 23:00 Weight 61.23 kg; Height 5 ft. 4 in. (162.56 cm); lp1 23:00 BP 111 / 57; Pulse 101; Resp 20; Temp 98.1(O); Pulse Ox 98% on R/A; vc1 05/16 05:16 BP 99 / 55 LA Supine (auto/reg); Pulse 99 MON; Resp 14 S; Temp 98.6(O); Pulse Ox 96% on sv1 R/A; 08:44 BP 109 / 62; Pulse 97; Resp 15; Temp 98.8; Pulse Ox 97% ; Pain 0/10; eo2 12:20 BP 107 / 56; Pulse 92; Resp 17; Pulse Ox 96% ; Pain 0/10; eo2 05/15 23:00 Body Mass Index 23.17 (61.23 kg, 162.56 cm) lp1 ED Course: 05/15 23:00 Arm band placed on. lp1 23:00 Patient has correct armband on for positive identification. Bed in low position. lp1 Valuables inventory done. Locked in safe. See valuables checklist. 23:09 Patient arrived in ED. mw2 23:14 Johan Gonzalez MD is Attending Physician. mh7 23:24 Triage completed. lp1 23:37 Sven Lyons RN is Primary Nurse. sv1 05/16 00:37 Basic Metabolic Panel Sent. sv1 00:38 Acetaminophen Level Sent. sv1 00:38 COVID-19 SARS RT PCR (Document "Date of Onset" if Symptomatic) Sent. sv1 00:38 Acetaminophen Sent. sv1 00:38 Basic Metabolic Panel Sent. sv1 00:38 ETOH Level Sent. sv1 00:38 Hepatic Function Sent. sv1 00:38 PT-INR Sent. sv1 00:39 Ptt, Activated Sent. sv1 07:05 Attending Physician role handed off by Johan Gonzalez MD sp3 07:05 Meg Blair MD is Attending Physician. sp3 10:34 faxed chart to [facility]. bd 10:46 confirmed with Marcia at [facility] that chart was received. bd 12:27 No provider procedures requiring assistance completed. IV discontinued, intact. eo2 Administered Medications: 03:00 Drug: Potassium Effervescent Tablet 50 mEq Route: PO; sv1 12:34 Follow up: Response: No adverse reaction eo2 03:44 Drug: NS 0.9% 1000 ml Route: IV; Rate: 1000 ml; Site: left antecubital; sv1 12:34 Follow up: Response: No adverse reaction; IV Status: Completed infusion; IV Intake: eo2 1000ml 11:33 Not Given (Physician Discretion): Potassium Chloride 40 mEq PO once eo2 Intake: 12:34 IV: 1000ml; Total: 1000ml. eo2 Outcome: 10:45 Discharge ordered by MD. sp3 12:51 Discharged to home ambulatory, with family. eo2 12:51 Condition: stable 12:51 Discharge instructions given to patient, Instructed on discharge instructions, follow up and referral plans. Demonstrated understanding of instructions, follow-up care. 12:52 Patient left the ED. eo2 Signatures: Elena Mcgraw Laura, RN RN lp1 Samara Guzman 2 Johan Gonzalez MD MD 7 Meg Blair MD MD sp3 Sven Lyons RN RN sv1 Kathy Roman RN RN eo2 Marleny Mane RN RN vc1
--- NOTE | 2021-05-16 10:47 | EDPHYS ---
Physician Documentation [facility] Name: Cynthia Giles Age: 55 yrs Sex: Female : 1965 Arrival Date: 05/15/2021 Time: 23:09 Bed 20 Private MD: ED Physician Meg Blair HPI: 05/15 23:32 This 55 yrs old Female presents to ER via EMS with complaints of Suicidal Ideation. [facility] 23:32 The patient presents to the emergency department with depression, over a , the mh7 patient's mother, a history of substance abuse, Type: Alcohol- rum, the amount of abuse is unknown, today, suicide ideation, and the patient has a plan, to overdose with medications. Onset: The symptoms/episode began/occurred yesterday. Past psychiatric history: Prior diagnosis: depression, Anxiety, Psychiatric medications include: Prozac, Trazodone, Primary psychiatric physician: the patient does not have a primary psychiatric physician, the patient has not had a prior suicide gesture, the patient does not have a previous inpatient psychiatric history, the patient's last psychiatric treatment was none. Associated signs and symptoms: Pertinent negatives: abdominal pain, anxiety, chest pain, chills, delusions, fever, hallucinations, headache, homicidal ideation, nausea, night sweats, palpitations, paranoia, shortness of breath, tremor, vomiting. Severity of symptoms: At their worst the symptoms were moderate yesterday, in the emergency department the symptoms have improved moderately. 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 - Social history:: Smoking status: Patient reports the use of cigarette tobacco products, smokes one-half pack cigarettes per day. ROS: 23:32 Constitutional: Negative for fever, chills, and weight loss, Eyes: Negative for injury, mh7 pain, redness, and discharge, ENT: Negative for injury, pain, and discharge, Neck: Negative for injury, pain, and swelling, Cardiovascular: Negative for chest pain, palpitations, and edema, Respiratory: Negative for shortness of breath, cough, wheezing, and pleuritic chest pain, Abdomen/GI: Negative for abdominal pain, nausea, vomiting, diarrhea, and constipation, Back: Negative for injury and pain, : Negative for injury, bleeding, discharge, and swelling, MS/Extremity: Negative for injury and deformity, Skin: Negative for injury, rash, and discoloration, Neuro: Negative for headache, weakness, numbness, tingling, and seizure, Allergy/Immunology: Negative for hives, rash, and allergies, Endocrine: Negative for neck swelling, polydipsia, polyuria, polyphagia, and marked weight changes, Hematologic/Lymphatic: Negative for swollen nodes, abnormal bleeding, and unusual bruising. Exam: 23:32 Constitutional: This is a well developed, well nourished patient who is awake, alert, mh7 and in no acute distress. Head/Face: Normocephalic, atraumatic. Eyes: Pupils equal round and reactive to light, extra-ocular motions intact. Lids and lashes normal. Conjunctiva and sclera are non-icteric and not injected. Cornea within normal limits. Periorbital areas with no swelling, redness, or edema. Neck: Trachea midline, no thyromegaly or masses palpated, and no cervical lymphadenopathy. Supple, full range of motion without nuchal rigidity, or vertebral point tenderness. No Meningismus. Chest/axilla: Normal chest wall appearance and motion. Nontender with no deformity. No lesions are appreciated. Cardiovascular: Regular rate and rhythm with a normal S1 and S2. No gallops, murmurs, or rubs. Normal PMI, no JVD. No pulse deficits. Respiratory: Lungs have equal breath sounds bilaterally, clear to auscultation and percussion. No rales, rhonchi or wheezes noted. No increased work of breathing, no retractions or nasal flaring. Abdomen/GI: Soft, non-tender, with normal bowel sounds. No distension or tympany. No guarding or rebound. No evidence of tenderness throughout. Back: No spinal tenderness. No costovertebral tenderness. Full range of motion. Skin: Warm, dry with normal turgor. Normal color with no rashes, no lesions, and no evidence of cellulitis. MS/ Extremity: Pulses equal, no cyanosis. Neurovascular intact. Full, normal range of motion. Neuro: Awake and alert, GCS 15, oriented to person, place, time, and situation. Cranial nerves II-XII grossly intact. Motor strength 5/5 in all extremities. Sensory grossly intact. Cerebellar exam normal. Normal gait. 23:32 Psych: Behavior/mood is cooperative, depressed, Affect is calm, Oriented to person, mh7 place, time, Patient has no thoughts/intents to harm self or others. Judgement / Insight is normal. Memory is normal. Delusions/hallucinations are not present. 05/16 00:10 ECG was reviewed by the Attending Physician. [facility] Vital Signs: 05/15 23:00 Weight 61.23 kg; Height 5 ft. 4 in. (162.56 cm); lp1 23:00 BP 111 / 57; Pulse 101; Resp 20; Temp 98.1(O); Pulse Ox 98% on R/A; vc1 05/16 05:16 BP 99 / 55 LA Supine (auto/reg); Pulse 99 MON; Resp 14 S; Temp 98.6(O); Pulse Ox 96% on sv1 R/A; 08:44 BP 109 / 62; Pulse 97; Resp 15; Temp 98.8; Pulse Ox 97% ; Pain 0/10; eo2 12:20 BP 107 / 56; Pulse 92; Resp 17; Pulse Ox 96% ; Pain 0/10; eo2 05/15 23:00 Body Mass Index 23.17 (61.23 kg, 162.56 cm) lp1 MDM: 07:02 Transition of care: After a detail discussion of the patient's case, care is 7 transferred to Meg Blair MD. 10:44 Data reviewed: vital signs, nurses notes. ED course: Repeat alcohol level is less than sp3 100. Electrolytes have been replaced. Upon direct questioning patient is no longer suicidal or homicidal and has no psychosis. Patient states multiple reasons to live including her children and grandchildren. Patient states that she does not plan to drink that heavily again. She will be going home after her discharge and seeking reconnection with her previous psychiatrist. Patient or stands to return here for any worsening suicidal ideation or any other concerns that she may have.. 10:45 Patient medically screened. sp3 05/15 23:16 Order name: Acetaminophen [facility] 05/15 23:16 Order name: Basic Metabolic Panel [facility] 05/15 23:16 Order name: CBC with Diff; Complete Time: 01:54 [facility] 05/15 23:16 Order name: ETOH Level; Complete Time: 01:16 [facility] 05/15 23:16 Order name: Hepatic Function; Complete Time: 01:16 [facility] 05/15 23:16 Order name: PT-INR; Complete Time: 01:16 [facility] 05/15 23:16 Order name: Ptt, Activated; Complete Time: 01:16 [facility] 05/15 23:16 Order name: Salicylate; Complete Time: 01:16 [facility] 05/15 23:16 Order name: Urine Drug Screen; Complete Time: 01:16 [facility] 05/15 23:16 Order name: COVID-19 SARS RT PCR (Document "Date of Onset" if Symptomatic); Complete [facility] Time: 01:16 05/15 23:16 Order name: Acetaminophen Level; Complete Time: 01:16 [facility] 05/15 23:16 Order name: Basic Metabolic Panel; Complete Time: 01:16 [facility] 05/16 00:10 Order name: Urine Dipstick-Ancillary; Complete Time: 01:16 [facility] 05/16 00:38 Order name: Manual Differential; Complete Time: 01:54 [facility] 05/15 23:16 Order name: EKG; Complete Time: 23:17 [facility] 05/15 23:16 Order name: EKG - Nurse/Tech; Complete Time: 00:10 [facility] 05/15 23:16 Order name: IV Saline Lock; Complete Time: 00:38 [facility] 05/15 23:16 Order name: Labs collected and sent; Complete Time: 00:38 [facility] 05/15 23:16 Order name: Suicide Precautions; Complete Time: 00:10 [facility] 05/15 23:16 Order name: Suicide Screening ([place]); Complete Time: 00:10 [facility] 05/15 23:16 Order name: Urine Dipstick-Ancillary (obtain specimen); Complete Time: 00:10 [facility] 05/16 07:09 Order name: ETOH Level bd 05/16 09:05 Order name: Diet Finger Food; Complete Time: 09:05 eo2 EC:10 Rate is 81 beats/min. Rhythm is regular, Normal Sinus Rhythm with No ectopy. QRS [place] mh7 is Normal. AL interval is normal. QRS interval is normal. QT interval is prolonged at 504 msec. No Q waves. T waves are Normal. No ST changes noted. Clinical impression: NSR w/ Non-specific ST/T Changes and No evidence of ischemia. Administered Medications: 03:00 Drug: Potassium Effervescent Tablet 50 mEq Route: PO; sv1 12:34 Follow up: Response: No adverse reaction eo2 03:44 Drug: NS 0.9% 1000 ml Route: IV; Rate: 1000 ml; Site: left antecubital; sv1 12:34 Follow up: Response: No adverse reaction; IV Status: Completed infusion; IV Intake: eo2 1000ml 11:33 Not Given (Physician Discretion): Potassium Chloride 40 mEq PO once eo2 Disposition Summary: 05/16/21 10:45 Discharge Ordered Location: Home sp3 Condition: Stable sp3 Diagnosis - Alcohol abuse with intoxication sp3 - Suicidal ideation, now resolved sp3 Discharge Instructions: - Discharge Summary Sheet sp3 - Alcohol Intoxication sp3 Forms: - Medication Reconciliation Form sp3 - Thank You Letter sp3 - Antibiotic Education sp3 - Prescription Opioid Use sp3 Signatures: Dispatcher [employer] Naila Miranda RN RN lp1 Johan Gonzalez MD MD 7 Meg Blair MD MD sp3 Sven Lyons RN RN sv1 Kathy Roman RN eo2
[2021-05-16 13:05] VITALS: TEMP 98.8
[2021-05-16 13:06] VITALS: BP 107/56; O2SAT 96
== END 2021-05-16 12:52 | disposition home or self-care (01) ==
LOC: ER 23:05
DX: F10.129 Alcohol abuse with intoxication, unspecified (principal); F32.A Depression, unspecified; F41.9 Anxiety disorder, unspecified; F17.210 Nicotine dependence, cigarettes, uncomplicated; Z20.822 Contact with and (suspected) exposure to COVID-19
CPT/HCPCS: 93005; 85025; 80048; 36415; 80320 ×2; 80329 ×2; 85610; 80076; 85730; 81003; 80307; U0003; J7030; 96360; 96361; 99284

== ENCOUNTER 2022-02-01 11:11 | Emergency (ER) | payer BC ==
--- OUTSIDE RECORDS SUMMARY | 2022-02-01 11:16 | XMS REPORT | Continuity of Care Document ---
:[address] [facility] t Address [address] [place] [address] Care Team Providers Name Role Phone Pcp, Patient Does Not Have A Primary Care Physician [phone] 00-0000 Dany Attending Clinician Unavailable Yue Rizvi Attending Clinician [phone] MD YUE RIZVI Attending Clinician Unavailable Vianney Lepe RN Attending Clinician Unavailable Only, Ang Db Test Attending Clinician Unavailable Ant Adames MD Attending Clinician ANT ADAMES Attending Clinician Unavailable EVERARDO ASTORGA Attending Clinician Unavailable Tereza Rodriguez Attending Clinician Unavailable Dany Admitting Clinician Unavailable YUE RIZVI Admitting Clinician Unavailable MD YUE RIZVI Admitting Clinician Unavailable Physician, No Primary or Family Admitting Clinician Unavaila ble Payers Payer Name Policy Type Policy Number Effective Date Expiration Date Samantha bishop [place] [id number] 2016 00:00:00 [place] Problems Condition Condition Condition Status Onset Resolution Last Treating Co mments Source Name Details Category Date Date Treatment Clinician Date Malignant Malignant Disease Active 2020-03 [facility] neoplasm neoplasm 03-28 of 00:00: Hospita bladder, bladder, 00 l unspecifie unspecifie d d 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-14 [facility] urinary Urinary 00:00: Urology bladder Bladder 00 Dysuria Dysuria Problem Active 2020-03 [place] 0-05 [facility] 00:00: Urology 00 Blood in Blood in Problem Active 2020-03 [place] urine Urine 0-04 [facility] 00:00: Urology 00 Allergies, Adverse Reactions, Alerts Allergy Allergy Status Severity Reaction(s) Onset Inactive Treating Comm ents Source Name Type Date Date Clinician Lactose Propensi Active Diarrhea 2020-03 Lactose Meth ramirez ty to [address] adverse 00:00: t Hospita reaction 00 l s to drug Iodine Propensi Active Other (See 2020-03 Stated Meth ramirez ty to Comments) 0-[address] adverse 00:00: IODINE Hospita reaction 00 ONLY with l s to extreme drug full body pain No Known DA Active U [facility] [place] Int[facility] 00:00: d [facility] 00 [facility] [place] Iodine Allergy Active [place] to [facility] substanc Urology e NO KNOWN Drug Active Univers ALLERGIE Class ity of [facility] Social History Social Habit Start Date Stop Date Quantity Comments Source History of tobacco 1982 Occasional Method ist use 00:00:00 tobacco smoker Hospital Exposure to Yes University of SARS-CoV-2 (event) [facility] Alcohol intake 2021-01-27 2021-01-27 Current drinker [facility] dist 00:00:00 00:00:00 of alcohol Hospital (finding) Cigarettes smoked 2021-01-21 2021-01-[address] current (pack per 00:00:00 00:00:00 Hospita l day) - Reported Cigarette 2021-01-21 2021-01-21 [facility] pack-years 00:00:00 00:00:00 Hospital Tobacco use and 2021-01-21 2021-01-21 Smokeless tobacco Me thodist exposure 00:00:00 00:00:00 non-user Hospital Sex Assigned At [birth year] [facility] 00:00:00 00:00:00 Hospital Smoking Status Start Date Stop Date Source Unknown if ever smoked [facility] Occasional tobacco smoker 2021-01-21 00:00:00 [facility] Medications Ordered Filled Start Stop Current Ordering Indication Dosage Frequency Signature Comments Components Source Medication Medication Date Date Medication? Clinician (SIG) Name Name Eric BCG 50 Eric BCG 50 No Eric BCG Adalid mg mg 2-07 50 mg [facility] intravesica intravesica 13:18: intravesic Urology l l 00 al suspensionI suspensionI suspension nstill 1 mL nstill 1 mL Instill 1 by by mL by intravesica intravesica intravesic l route. l route. al route. F[facility] BCG 50 [facility] BCG 50 No Eric BCG Adalid mg mg 1-24 50 mg [facility] intravesica intravesica 13:54: intravesic Urology l l 47 al suspensionI suspensionI suspension nstill 1 mL nstill 1 mL Instill 1 by by mL by intravesica intravesica intravesic l route. l route. al route. FLUoxetine 2020-03 Yes 40mg QD Take 40 mg M ethodi (PROzac) 40 03-[address] MG capsule 09:54: every Hospit a 30 morning. l docusate 2020-03- No 100mg Q.5D Take 1 Metho di sodium 03-[address] (Colace) 00:00: 05:59 (100 mg Hospi ta 100 MG 00 :00 total) by l capsule mouth 2 (two) times a day for 30 days. phenazopyri 2020-03 No 100mg [id number] Take 1 [facility] dine 03-[id number] (Pyridium) 00:00: 05:59 3D (100 mg Hos michael 100 MG 00 :00 total) by l tablet mouth 3 (three) times a day as needed for bladder spasms for up to 10 days. traMADoL 2020-03- No [id number] 50mg Q6H Take 1 Metho di (ULTRAM) 50 03-29 tablet (50 s t mg tablet 00:00: 05:59 mg total) Ho spita 00 :00 by mouth l every 6 (six) hours as needed for moderate pain for up to 10 days .acute pain. doxycycline 2020-03- No 50mg Q.5D Take 1 [facility] (VIBRAMYCIN 1-18 11-[address] ) 50 MG 00:00: 05:59 (50 mg Hospita capsule 00 :00 total) by l mouth 2 (two) times a day for 7 days. pantoprazol 2020-03 Yes 40mg QD Take 40 mg Methodi e 0-[address] (PROTONIX) 00:00: every Hospit a 40 MG EC 00 morning. l tablet azithromyci azithromyci No azithromyc [place] n 250 mg n 250 mg in 250 mg Me tro tablet TAKE tablet TAKE tablet Urology 2 TABLETS 2 TABLETS TAKE 2 BY MOUTH ON BY MOUTH ON TABLETS BY DAY 1, THEN DAY 1, THEN MOUTH ON 1 TABLET 1 TABLET DAY 1, DAILY ON DAILY ON THEN 1 DAYS 2 TO DAYS 2 TO TABLET 5. 5. DAILY ON DAYS 2 TO 5. benzonatate benzonatate No benzonatat [place] 100 mg 100 mg e 100 mg [facility] capsule capsule capsule Urolog y benzonatate benzonatate No benzonatat [place] 200 mg 200 mg e 200 mg [facility] capsule capsule capsule Urolog y cefpodoxime cefpodoxime No 1 Q12H cefpodoxim [place] 200 mg 200 mg e 200 mg [facility] tablet Take tablet Take tablet Urology 1 tablet 1 tablet Take 1 every 12 every 12 tablet hours by hours by every 12 oral route oral route hours by for 7 days. for 7 days. oral route for 7 days. cefuroxime cefuroxime No cefuroxime [place] axetil 500 axetil 500 axetil 500 [facility] mg tablet mg tablet mg tablet Urology clonazepam clonazepam No clonazepam [place] 0.25 mg 0.25 mg 0.25 mg [facility] disintegrat disintegrat disintegra Urology ing tablet ing tablet ting tablet fluoxetine fluoxetine No fluoxetine [place] 40 mg 40 mg 40 mg [facility] capsule capsule capsule Urolog y fluticasone fluticasone No fluticason [place] propionate propionate e Met ro 50 50 propionate Urology mcg/actuati mcg/actuati 50 on nasal on nasal mcg/actuat spray,suspe spray,suspe ion nasal nsion nsion spray,susp ension nitrofurant nitrofurant No nitrofuran [place] oin oin toin [facility] monohydrate monohydrate monohydrat Urology /macrocryst /macrocryst e/macrocry als 100 mg als 100 mg stals 100 capsule capsule mg capsule pantoprazol pantoprazol No pantoprazo [place] e 40 mg e 40 mg le 40 mg [facility] tablet,farrukh tablet,farrukh tablet,del Urology yed release yed release ayed release prednisolon prednisolon No prednisolo [place] e acetate 1 e acetate 1 ne acetate [facility] % eye % eye 1 % eye Urology drops,suspe drops,suspe drops,susp nsion nsion ension prednisone prednisone No prednisone [place] 10 mg 10 mg 10 mg [facility] tablet tablet tablet Urology Pyridium Pyridium No 1 TID Pyridium Damian ston 200 mg 200 mg 200 mg [facility] tablet Take tablet Take tablet Urology 1 tablet 3 1 tablet 3 Take 1 times a day times a day tablet 3 by oral by oral times a route for 3 route for 3 day by days. days. oral route for 3 days. trazodone trazodone No trazodone [place] 50 mg 50 mg 50 mg [facility] tablet tablet tablet Urology azithromyci azithromyci No azithromyc [place] n 250 mg n 250 mg in 250 mg Me tro tablet TAKE tablet TAKE tablet Urology 2 TABLETS 2 TABLETS TAKE 2 BY MOUTH ON BY MOUTH ON TABLETS BY DAY 1, THEN DAY 1, THEN MOUTH ON 1 TABLET 1 TABLET DAY 1, DAILY ON DAILY ON THEN 1 DAYS 2 TO DAYS 2 TO TABLET 5. 5. DAILY ON DAYS 2 TO 5. benzonatate benzonatate No benzonatat [place] 100 mg 100 mg e 100 mg [facility] capsule capsule capsule Urolog y benzonatate benzonatate No benzonatat [place] 200 mg 200 mg e 200 mg [facility] capsule capsule capsule Urolog y cefpodoxime cefpodoxime No cefpodoxim [place] 200 mg 200 mg e 200 mg [facility] tablet TAKE tablet TAKE tablet Urology ONE (1) ONE (1) TAKE ONE TABLET(S) TABLET(S) (1) BY MOUTH BY MOUTH TABLET(S) EVERY EVERY BY MOUTH TWELVE TWELVE EVERY HOURS FOR 7 HOURS FOR 7 TWELVE DAYS. DAYS. HOURS FOR 7 DAYS. cefuroxime cefuroxime No cefuroxime [place] axetil 500 axetil 500 axetil 500 [facility] mg tablet mg tablet mg tablet Urology clonazepam clonazepam No clonazepam [place] 0.25 mg 0.25 mg 0.25 mg [facility] disintegrat disintegrat disintegra Urology ing tablet ing tablet ting tablet fluoxetine fluoxetine No fluoxetine [place] 40 mg 40 mg 40 mg [facility] capsule capsule capsule Urolog y fluticasone fluticasone No fluticason [place] propionate propionate e Met ro 50 50 propionate Urology mcg/actuati mcg/actuati 50 on nasal on nasal mcg/actuat spray,suspe spray,suspe ion nasal nsion nsion spray,susp ension nitrofurant nitrofurant No nitrofuran [place] oin oin toin [facility] monohydrate monohydrate monohydrat Urology /macrocryst /macrocryst e/macrocry als 100 mg als 100 mg stals 100 capsule capsule mg capsule pantoprazol pantoprazol No pantoprazo [place] e 40 mg e 40 mg le 40 mg [facility] tablet,farrukh tablet,farrukh tablet,del Urology yed release yed release ayed release phenazopyri phenazopyri No phenazopyr [place] dine 200 mg dine 200 mg idine 200 [facility] tablet TAKE tablet TAKE mg tablet Urology ONE (1) ONE (1) TAKE ONE TABLET(S) TABLET(S) (1) BY MOUTH BY MOUTH TABLET(S) THREE TIMES THREE TIMES BY MOUTH A DAY A DAY THREE NEEDED FOR NEEDED FOR TIMES A PAIN AND PAIN AND DAY BURNING BURNING NEEDED FOR WITH WITH PAIN AND URINATION. URINATION. BURNING WITH URINATION. prednisolon prednisolon No prednisolo [place] e acetate 1 e acetate 1 ne acetate [facility] % eye % eye 1 % eye Urology drops,suspe drops,suspe drops,susp nsion nsion ension prednisone prednisone No prednisone [place] 10 mg 10 mg 10 mg [facility] tablet tablet tablet Urology trazodone trazodone No trazodone [place] 50 mg 50 mg 50 mg [facility] tablet tablet tablet Urology azithromyci azithromyci No azithromyc [place] n 250 mg n 250 mg in 250 mg Me tro tablet TAKE tablet TAKE tablet Urology 2 TABLETS 2 TABLETS TAKE 2 BY MOUTH ON BY MOUTH ON TABLETS BY DAY 1, THEN DAY 1, THEN MOUTH ON 1 TABLET 1 TABLET DAY 1, DAILY ON DAILY ON THEN 1 DAYS 2 TO DAYS 2 TO TABLET 5. 5. DAILY ON DAYS 2 TO 5. benzonatate benzonatate No benzonatat [place] 100 mg 100 mg e 100 mg [facility] capsule capsule capsule Urolog y benzonatate benzonatate No benzonatat [place] 200 mg 200 mg e 200 mg [facility] capsule capsule capsule Urolog y cefpodoxime cefpodoxime No cefpodoxim [place] 200 mg 200 mg e 200 mg [facility] tablet TAKE tablet TAKE tablet Urology ONE (1) ONE (1) TAKE ONE TABLET(S) TABLET(S) (1) BY MOUTH BY MOUTH TABLET(S) EVERY EVERY BY MOUTH TWELVE TWELVE EVERY HOURS FOR 7 HOURS FOR 7 TWELVE DAYS. DAYS. HOURS FOR 7 DAYS. cefuroxime cefuroxime No cefuroxime [place] axetil 500 axetil 500 axetil 500 [facility] mg tablet mg tablet mg tablet Urology clonazepam clonazepam No clonazepam [place] 0.25 mg 0.25 mg 0.25 mg [facility] disintegrat disintegrat disintegra Urology ing tablet ing tablet ting tablet fluoxetine fluoxetine No fluoxetine [place] 40 mg 40 mg 40 mg [facility] capsule capsule capsule Urolog y fluticasone fluticasone No fluticason [place] propionate propionate e Met ro 50 50 propionate Urology mcg/actuati mcg/actuati 50 on nasal on nasal mcg/actuat spray,suspe spray,suspe ion nasal nsion nsion spray,susp ension nitrofurant nitrofurant No nitrofuran [place] oin oin toin [facility] monohydrate monohydrate monohydrat Urology /macrocryst /macrocryst e/macrocry als 100 mg als 100 mg stals 100 capsule capsule mg capsule pantoprazol pantoprazol No pantoprazo [place] e 40 mg e 40 mg le 40 mg [facility] tablet,farrukh tablet,farrukh tablet,del Urology yed release yed release ayed release phenazopyri phenazopyri No phenazopyr [place] dine 200 mg dine 200 mg idine 200 [facility] tablet TAKE tablet TAKE mg tablet Urology ONE (1) ONE (1) TAKE ONE TABLET(S) TABLET(S) (1) BY MOUTH BY MOUTH TABLET(S) THREE TIMES THREE TIMES BY MOUTH A DAY A DAY THREE NEEDED FOR NEEDED FOR TIMES A PAIN AND PAIN AND DAY BURNING BURNING NEEDED FOR WITH WITH PAIN AND URINATION. URINATION. BURNING WITH URINATION. prednisolon prednisolon No prednisolo [place] e acetate 1 e acetate 1 ne acetate [facility] % eye % eye 1 % eye Urology drops,suspe drops,suspe drops,susp nsion nsion ension prednisone prednisone No prednisone [place] 10 mg 10 mg 10 mg [facility] tablet tablet tablet Urology trazodone trazodone No trazodone [place] 50 mg 50 mg 50 mg [facility] tablet tablet tablet Urology acetaminoph acetaminoph No 1 Q6H acetaminop [place] en 300 en 300 hen 300 [facility] mg-codeine mg-codeine mg-codeine Urology 30 mg 30 mg 30 mg tablet Take tablet Take tablet 1 tablet 1 tablet Take 1 every 6 every 6 tablet hours by hours by every 6 oral route oral route hours by for 5 days. for 5 days. oral route for 5 days. azithromyci azithromyci No azithromyc [place] n 250 mg n 250 mg in 250 mg Me tro tablet TAKE tablet TAKE tablet Urology 2 TABLETS 2 TABLETS TAKE 2 BY MOUTH ON BY MOUTH ON TABLETS BY DAY 1, THEN DAY 1, THEN MOUTH ON 1 TABLET 1 TABLET DAY 1, DAILY ON DAILY ON THEN 1 DAYS 2 TO DAYS 2 TO TABLET 5. 5. DAILY ON DAYS 2 TO 5. benzonatate benzonatate No benzonatat [place] 100 mg 100 mg e 100 mg [facility] capsule capsule capsule Urolog y benzonatate benzonatate No benzonatat [place] 200 mg 200 mg e 200 mg [facility] capsule capsule capsule Urolog y cefpodoxime cefpodoxime No 1 Q12H cefpodoxim [place] 200 mg 200 mg e 200 mg [facility] tablet Take tablet Take tablet Urology 1 tablet 1 tablet Take 1 every 12 every 12 tablet hours by hours by every 12 oral route oral route hours by for 7 days. for 7 days. oral route for 7 days. cefuroxime cefuroxime No cefuroxime [place] axetil 500 axetil 500 axetil 500 [facility] mg tablet mg tablet mg tablet Urology clonazepam clonazepam No clonazepam [place] 0.25 mg 0.25 mg 0.25 mg [facility] disintegrat disintegrat disintegra Urology ing tablet ing tablet ting tablet Ditropan XL Ditropan XL No 1 Q1D Ditropan [place] 10 mg 10 mg XL 10 mg [facility] tablet,exte tablet,exte tablet,ext Urology nded nded ended release release release Take 1 Take 1 Take 1 tablet tablet tablet every day every day every day by oral by oral by oral route for route for route for 14 days. 14 days. 14 days. fluoxetine fluoxetine No fluoxetine [place] 40 mg 40 mg 40 mg [facility] capsule capsule capsule Urolog y fluticasone fluticasone No fluticason [place] propionate propionate e Met ro 50 50 propionate Urology mcg/actuati mcg/actuati 50 on nasal on nasal mcg/actuat spray,suspe spray,suspe ion nasal nsion nsion spray,susp ension nitrofurant nitrofurant No nitrofuran [place] oin oin toin [facility] monohydrate monohydrate monohydrat Urology /macrocryst /macrocryst e/macrocry als 100 mg als 100 mg stals 100 capsule capsule mg capsule pantoprazol pantoprazol No pantoprazo [place] e 40 mg e 40 mg le 40 mg [facility] tablet,farrukh tablet,farrukh tablet,del Urology yed release yed release ayed release prednisolon prednisolon No prednisolo [place] e acetate 1 e acetate 1 ne acetate [facility] % eye % eye 1 % eye Urology drops,suspe drops,suspe drops,susp nsion nsion ension prednisone prednisone No prednisone [place] 10 mg 10 mg 10 mg [facility] tablet tablet tablet Urology Pyridium Pyridium No 1 TID Pyridium Damian ston 200 mg 200 mg 200 mg [facility] tablet Take tablet Take tablet Urology 1 tablet 3 1 tablet 3 Take 1 times a day times a day tablet 3 by oral by oral times a route for 3 route for 3 day by days. days. oral route for 3 days. trazodone trazodone No trazodone [place] 50 mg 50 mg 50 mg [facility] tablet tablet tablet Urology acetaminoph acetaminoph No acetaminop [place] en 300 en 300 hen 300 [facility] mg-codeine mg-codeine mg-codeine U[facility] 30 mg 30 mg 30 mg tablet TAKE tablet TAKE tablet 1 TABLET BY 1 TABLET BY TAKE 1 MOUTH EVERY MOUTH EVERY TABLET BY 6 HOURS FOR 6 HOURS FOR MOUTH 5 DAYS 5 DAYS EVERY 6 HOURS FOR 5 DAYS azithromyci azithromyci No azithromyc [place] n 250 mg n 250 mg in 250 mg Me tro tablet TAKE tablet TAKE tablet Urology 2 TABLETS 2 TABLETS TAKE 2 BY MOUTH ON BY MOUTH ON TABLETS BY DAY 1, THEN DAY 1, THEN MOUTH ON 1 TABLET 1 TABLET DAY 1, DAILY ON DAILY ON THEN 1 DAYS 2 TO DAYS 2 TO TABLET 5. 5. DAILY ON DAYS 2 TO 5. benzonatate benzonatate No benzonatat [place] 100 mg 100 mg e 100 mg [facility] capsule capsule capsule Urolog y benzonatate benzonatate No benzonatat [place] 200 mg 200 mg e 200 mg [facility] capsule capsule capsule Urolog y cefpodoxime cefpodoxime No cefpodoxim [place] 200 mg 200 mg e 200 mg [facility] tablet TAKE tablet TAKE tablet Urology 1 TABLET BY 1 TABLET BY TAKE 1 MOUTH EVERY MOUTH EVERY TABLET BY 12 HOURS 12 HOURS MOUTH FOR 7 DAYS FOR 7 DAYS EVERY 12 HOURS FOR 7 DAYS cefuroxime cefuroxime No cefuroxime [place] axetil 500 axetil 500 axetil 500 [facility] mg tablet mg tablet mg tablet Urology clonazepam clonazepam No clonazepam [place] 0.25 mg 0.25 mg 0.25 mg [facility] disintegrat disintegrat disintegra Urology ing tablet ing tablet ting tablet fluoxetine fluoxetine No fluoxetine [place] 40 mg 40 mg 40 mg [facility] capsule capsule capsule Urolog y fluticasone fluticasone No fluticason [place] propionate propionate e Met ro 50 50 propionate Urology mcg/actuati mcg/actuati 50 on nasal on nasal mcg/actuat spray,suspe spray,suspe ion nasal nsion nsion spray,susp ension nitrofurant nitrofurant No nitrofuran [place] oin oin toin [facility] monohydrate monohydrate monohydrat Urology /macrocryst /macrocryst e/macrocry als 100 mg als 100 mg stals 100 capsule capsule mg capsule oxybutynin oxybutynin No oxybutynin [place] chloride ER chloride ER chloride [facility] 10 mg 10 mg ER 10 mg Urology tablet,exte tablet,exte tablet,ext nded nded ended release 24 release 24 release 24 hr TAKE 1 hr TAKE 1 hr TAKE 1 TABLET BY TABLET BY TABLET BY MOUTH EVERY MOUTH EVERY MOUTH DAY FOR 14 DAY FOR 14 EVERY DAY DAYS DAYS FOR 14 DAYS pantoprazol pantoprazol No pantoprazo [place] e 40 mg e 40 mg le 40 mg [facility] tablet,farrukh tablet,farrukh tablet,del Urology yed release yed release ayed release prednisolon prednisolon No prednisolo [place] e acetate 1 e acetate 1 ne acetate [facility] % eye % eye 1 % eye Urology drops,suspe drops,suspe drops,susp nsion nsion ension prednisone prednisone No prednisone [place] 10 mg 10 mg 10 mg [facility] tablet tablet tablet Urology Pyridium Pyridium No Pyridium Damian ston 200 mg 200 mg 200 mg [facility] tablet TAKE tablet TAKE tablet Urology 1 TABLET BY 1 TABLET BY TAKE 1 MOUTH THREE MOUTH THREE TABLET BY TIMES DAILY TIMES DAILY MOUTH FOR 3 DAYS FOR 3 DAYS THREE TIMES DAILY FOR 3 DAYS trazodone trazodone No trazodone [place] 50 mg 50 mg 50 mg [facility] tablet tablet tablet Urology acetaminoph acetaminoph No acetaminop [place] en 300 en 300 hen 300 [facility] mg-codeine mg-codeine mg-codeine [facility] 30 mg 30 mg 30 mg tablet TAKE tablet TAKE tablet 1 TABLET BY 1 TABLET BY TAKE 1 MOUTH EVERY MOUTH EVERY TABLET BY 6 HOURS FOR 6 HOURS FOR MOUTH 5 DAYS 5 DAYS EVERY 6 HOURS FOR 5 DAYS azithromyci azithromyci No azithromyc [place] n 250 mg n 250 mg in 250 mg Me tro tablet TAKE tablet TAKE tablet Urology 2 TABLETS 2 TABLETS TAKE 2 BY MOUTH ON BY MOUTH ON TABLETS BY DAY 1, THEN DAY 1, THEN MOUTH ON 1 TABLET 1 TABLET DAY 1, DAILY ON DAILY ON THEN 1 DAYS 2 TO DAYS 2 TO TABLET 5. 5. DAILY ON DAYS 2 TO 5. benzonatate benzonatate No benzonatat [place] 100 mg 100 mg e 100 mg [facility] capsule capsule capsule Urolog y benzonatate benzonatate No benzonatat [place] 200 mg 200 mg e 200 mg [facility] capsule capsule capsule Urolog y cefpodoxime cefpodoxime No cefpodoxim [place] 200 mg 200 mg e 200 mg [facility] tablet TAKE tablet TAKE tablet Urology 1 TABLET BY 1 TABLET BY TAKE 1 MOUTH EVERY MOUTH EVERY TABLET BY 12 HOURS 12 HOURS MOUTH FOR 7 DAYS FOR 7 DAYS EVERY 12 HOURS FOR 7 DAYS cefuroxime cefuroxime No cefuroxime [place] axetil 500 axetil 500 axetil 500 [facility] mg tablet mg tablet mg tablet Urology clonazepam clonazepam No clonazepam [place] 0.25 mg 0.25 mg 0.25 mg [facility] disintegrat disintegrat disintegra Urology ing tablet ing tablet ting tablet doxycycline doxycycline No doxycyclin [place] hyclate 100 hyclate 100 e hyclate [facility] mg capsule mg capsule 100 mg U rology capsule doxycycline doxycycline No doxycyclin [place] hyclate 100 hyclate 100 e hyclate [facility] mg tablet mg tablet 100 mg Uro logy Take 1 Take 1 tablet tablet tablet Take 1 twice a day twice a day tablet by oral by oral twice a route for 7 route for 7 day by days. days. oral route for 7 days. doxycycline doxycycline No doxycyclin [place] hyclate 50 hyclate 50 e hyclate [facility] mg capsule mg capsule 50 mg Ur ology capsule fluoxetine fluoxetine No fluoxetine [place] 40 mg 40 mg 40 mg [facility] capsule capsule capsule Urolog y fluticasone fluticasone No fluticason [place] propionate propionate e Met ro 50 50 propionate Urology mcg/actuati mcg/actuati 50 on nasal on nasal mcg/actuat spray,suspe spray,suspe ion nasal nsion nsion spray,susp ension nitrofurant nitrofurant No nitrofuran [place] oin oin toin [facility] monohydrate monohydrate monohydrat Urology /macrocryst /macrocryst e/macrocry als 100 mg als 100 mg stals 100 capsule capsule mg capsule oxybutynin oxybutynin No oxybutynin [place] chloride ER chloride ER chloride [facility] 10 mg 10 mg ER 10 mg [facility] tablet,exte tablet,exte tablet,ext nded nded ended release 24 release 24 release 24 hr TAKE 1 hr TAKE 1 hr TAKE 1 TABLET BY TABLET BY TABLET BY MOUTH EVERY MOUTH EVERY MOUTH DAY FOR 14 DAY FOR 14 EVERY DAY DAYS DAYS FOR 14 DAYS pantoprazol pantoprazol No pantoprazo [place] e 40 mg e 40 mg le 40 mg [facility] tablet,farrukh tablet,farrukh tablet,del Urology yed release yed release ayed release prednisolon prednisolon No prednisolo [place] e acetate 1 e acetate 1 ne acetate [facility] % eye % eye 1 % eye Urology drops,suspe drops,suspe drops,susp nsion nsion ension prednisone prednisone No prednisone [place] 10 mg 10 mg 10 mg [facility] tablet tablet tablet Urology Pyridium Pyridium No Pyridium Damian ston 200 mg 200 mg 200 mg [facility] tablet TAKE tablet TAKE tablet Urology 1 TABLET BY 1 TABLET BY TAKE 1 MOUTH THREE MOUTH THREE TABLET BY TIMES DAILY TIMES DAILY MOUTH FOR 3 DAYS FOR 3 DAYS THREE TIMES DAILY FOR 3 DAYS tramadol 50 tramadol 50 No tramadol [place] mg tablet mg tablet 50 mg Metr o tablet Urology trazodone trazodone No trazodone [place] 50 mg 50 mg 50 mg [facility] tablet tablet tablet Urology acetaminoph acetaminoph No acetaminop [place] en 300 en 300 hen 300 [facility] mg-codeine mg-codeine mg-codeine U[facility] 30 mg 30 mg 30 mg tablet TAKE tablet TAKE tablet 1 TABLET BY 1 TABLET BY TAKE 1 MOUTH EVERY MOUTH EVERY TABLET BY 6 HOURS FOR 6 HOURS FOR MOUTH 5 DAYS 5 DAYS EVERY 6 HOURS FOR 5 DAYS azithromyci azithromyci No azithromyc [place] n 250 mg n 250 mg in 250 mg Me tro tablet TAKE tablet TAKE tablet Urology 2 TABLETS 2 TABLETS TAKE 2 BY MOUTH ON BY MOUTH ON TABLETS BY DAY 1, THEN DAY 1, THEN MOUTH ON 1 TABLET 1 TABLET DAY 1, DAILY ON DAILY ON THEN 1 DAYS 2 TO DAYS 2 TO TABLET 5. 5. DAILY ON DAYS 2 TO 5. benzonatate benzonatate No benzonatat [place] 100 mg 100 mg e 100 mg [facility] capsule capsule capsule Urolog y benzonatate benzonatate No benzonatat [place] 200 mg 200 mg e 200 mg [facility] capsule capsule capsule Urolog y cefpodoxime cefpodoxime No cefpodoxim [place] 200 mg 200 mg e 200 mg [facility] tablet TAKE tablet TAKE tablet Urology 1 TABLET BY 1 TABLET BY TAKE 1 MOUTH EVERY MOUTH EVERY TABLET BY 12 HOURS 12 HOURS MOUTH FOR 7 DAYS FOR 7 DAYS EVERY 12 HOURS FOR 7 DAYS cefuroxime cefuroxime No cefuroxime [place] axetil 500 axetil 500 axetil 500 [facility] mg tablet mg tablet mg tablet Urology clonazepam clonazepam No clonazepam [place] 0.25 mg 0.25 mg 0.25 mg [facility] disintegrat disintegrat disintegra Urology ing tablet ing tablet ting tablet doxycycline doxycycline No doxycyclin [place] hyclate 100 hyclate 100 e hyclate [facility] mg capsule mg capsule 100 mg U rology capsule doxycycline doxycycline No doxycyclin [place] hyclate 100 hyclate 100 e hyclate [facility] mg tablet mg tablet 100 mg Uro logy Take 1 Take 1 tablet tablet tablet Take 1 twice a day twice a day tablet by oral by oral twice a route for 7 route for 7 day by days. days. oral route for 7 days. doxycycline doxycycline No doxycyclin [place] hyclate 50 hyclate 50 e hyclate [facility] mg capsule mg capsule 50 mg Ur ology capsule fluoxetine fluoxetine No fluoxetine [place] 40 mg 40 mg 40 mg [facility] capsule capsule capsule Urolog y fluticasone fluticasone No fluticason [place] propionate propionate e Met ro 50 50 propionate Urology mcg/actuati mcg/actuati 50 on nasal on nasal mcg/actuat spray,suspe spray,suspe ion nasal nsion nsion spray,susp ension nitrofurant nitrofurant No nitrofuran [place] oin oin toin [facility] monohydrate monohydrate monohydrat Urology /macrocryst /macrocryst e/macrocry als 100 mg als 100 mg stals 100 capsule capsule mg capsule oxybutynin oxybutynin No oxybutynin [place] chloride ER chloride ER chloride [facility] 10 mg 10 mg ER 10 mg [facility] tablet,exte tablet,exte tablet,ext nded nded ended release 24 release 24 release 24 hr TAKE 1 hr TAKE 1 hr TAKE 1 TABLET BY TABLET BY TABLET BY MOUTH EVERY MOUTH EVERY MOUTH DAY FOR 14 DAY FOR 14 EVERY DAY DAYS DAYS FOR 14 DAYS pantoprazol pantoprazol No pantoprazo [place] e 40 mg e 40 mg le 40 mg [facility] tablet,farrukh tablet,farrukh tablet,del Urology yed release yed release ayed release prednisolon prednisolon No prednisolo [place] e acetate 1 e acetate 1 ne acetate [facility] % eye % eye 1 % eye Urology drops,suspe drops,suspe drops,susp nsion nsion ension prednisone prednisone No prednisone [place] 10 mg 10 mg 10 mg [facility] tablet tablet tablet Urology Pyridium Pyridium No Pyridium Damian ston 200 mg 200 mg 200 mg [facility] tablet TAKE tablet TAKE tablet Urology 1 TABLET BY 1 TABLET BY TAKE 1 MOUTH THREE MOUTH THREE TABLET BY TIMES DAILY TIMES DAILY MOUTH FOR 3 DAYS FOR 3 DAYS THREE TIMES DAILY FOR 3 DAYS tramadol 50 tramadol 50 No tramadol [place] mg tablet mg tablet 50 mg Met[facility] o tablet Urology trazodone trazodone No trazodone [place] 50 mg 50 mg 50 mg [facility] tablet tablet tablet Urology acetaminoph acetaminoph No acetaminop [place] en 300 en 300 hen 300 [facility] mg-codeine mg-codeine mg-codeine [facility] 30 mg 30 mg 30 mg tablet TAKE tablet TAKE tablet 1 TABLET BY 1 TABLET BY TAKE 1 MOUTH EVERY MOUTH EVERY TABLET BY 6 HOURS FOR 6 HOURS FOR MOUTH 5 DAYS 5 DAYS EVERY 6 HOURS FOR 5 DAYS azithromyci azithromyci No azithromyc [place] n 250 mg n 250 mg in 250 mg Me tro tablet TAKE tablet TAKE tablet Urology 2 TABLETS 2 TABLETS TAKE 2 BY MOUTH ON BY MOUTH ON TABLETS BY DAY 1, THEN DAY 1, THEN MOUTH ON 1 TABLET 1 TABLET DAY 1, DAILY ON DAILY ON THEN 1 DAYS 2 TO DAYS 2 TO TABLET 5. 5. DAILY ON DAYS 2 TO 5. benzonatate benzonatate No benzonatat [place] 100 mg 100 mg e 100 mg [facility] capsule capsule capsule Urolog y benzonatate benzonatate No benzonatat [place] 200 mg 200 mg e 200 mg [facility] capsule capsule capsule Urolog y cefpodoxime cefpodoxime No cefpodoxim [place] 200 mg 200 mg e 200 mg [facility] tablet TAKE tablet TAKE tablet Urology 1 TABLET BY 1 TABLET BY TAKE 1 MOUTH EVERY MOUTH EVERY TABLET BY 12 HOURS 12 HOURS MOUTH FOR 7 DAYS FOR 7 DAYS EVERY 12 HOURS FOR 7 DAYS cefuroxime cefuroxime No cefuroxime [place] axetil 500 axetil 500 axetil 500 [facility] mg tablet mg tablet mg tablet Urology clonazepam clonazepam No clonazepam [place] 0.25 mg 0.25 mg 0.25 mg [facility] disintegrat disintegrat disintegra Urology ing tablet ing tablet ting tablet doxycycline doxycycline No doxycyclin [place] hyclate 100 hyclate 100 e hyclate [facility] mg capsule mg capsule 100 mg U rology capsule doxycycline doxycycline No doxycyclin [place] hyclate 100 hyclate 100 e hyclate [facility] mg tablet mg tablet 100 mg Uro logy Take 1 Take 1 tablet tablet tablet Take 1 twice a day twice a day tablet by oral by oral twice a route for 7 route for 7 day by days. days. oral route for 7 days. doxycycline doxycycline No doxycyclin [place] hyclate 50 hyclate 50 e hyclate [facility] mg capsule mg capsule 50 mg Ur ology capsule fluoxetine fluoxetine No fluoxetine [place] 40 mg 40 mg 40 mg [facility] capsule capsule capsule Urolog y fluticasone fluticasone No fluticason [place] propionate propionate e [facility] ro 50 50 propionate Urology mcg/actuati mcg/actuati 50 on nasal on nasal mcg/actuat spray,suspe spray,suspe ion nasal nsion nsion spray,susp ension nitrofurant nitrofurant No nitrofuran [place] oin oin toin [facility] monohydrate monohydrate monohydrat Urology /macrocryst /macrocryst e/macrocry als 100 mg als 100 mg stals 100 capsule capsule mg capsule oxybutynin oxybutynin No oxybutynin [place] chloride ER chloride ER chloride [facility] 10 mg 10 mg ER 10 mg Urology tablet,exte tablet,exte tablet,ext nded nded ended release 24 release 24 release 24 hr TAKE 1 hr TAKE 1 hr TAKE 1 TABLET BY TABLET BY TABLET BY MOUTH EVERY MOUTH EVERY MOUTH DAY FOR 14 DAY FOR 14 EVERY DAY DAYS DAYS FOR 14 DAYS pantoprazol pantoprazol No pantoprazo [place] e 40 mg e 40 mg le 40 mg [facility] tablet,farrukh tablet,farrukh tablet,del Urology yed release yed release ayed release prednisolon prednisolon No prednisolo [place] e acetate 1 e acetate 1 ne acetate [facility] % eye % eye 1 % eye Urology drops,suspe drops,suspe drops,susp nsion nsion ension prednisone prednisone No prednisone [place] 10 mg 10 mg 10 mg [facility] tablet tablet tablet Urology Pyridium Pyridium No Pyridium Damian ston 200 mg 200 mg 200 mg [facility] tablet TAKE tablet TAKE tablet Urology 1 TABLET BY 1 TABLET BY TAKE 1 MOUTH THREE MOUTH THREE TABLET BY TIMES DAILY TIMES DAILY MOUTH FOR 3 DAYS FOR 3 DAYS THREE TIMES DAILY FOR 3 DAYS [facility] 50 [place] [facility] 50 No 1mL Eric BCG [place] mg mg 50 mg [facility] intravesica intravesica intravesic Urology l l al suspension suspension suspension Instill 1 Instill 1 Instill 1 mL by mL by mL by intravesica intravesica intravesic l route. l route. al route. tramadol 50 tramadol 50 No tramadol [place] mg tablet mg tablet 50 mg Met[facility] o tablet Urology trazodone trazodone No trazodone [place] 50 mg 50 mg 50 mg [facility] tablet tablet tablet Urology acetaminoph acetaminoph No acetaminop [place] en 300 en 300 hen 300 [facility] mg-codeine mg-codeine mg-codeine U[facility] 30 mg 30 mg 30 mg tablet TAKE tablet TAKE tablet 1 TABLET BY 1 TABLET BY TAKE 1 MOUTH EVERY MOUTH EVERY TABLET BY 6 HOURS FOR 6 HOURS FOR MOUTH 5 DAYS 5 DAYS EVERY 6 HOURS FOR 5 DAYS azithromyci azithromyci No azithromyc [place] n 250 mg n 250 mg in 250 mg Me tro tablet TAKE tablet TAKE tablet Urology 2 TABLETS 2 TABLETS TAKE 2 BY MOUTH ON BY MOUTH ON TABLETS BY DAY 1, THEN DAY 1, THEN MOUTH ON 1 TABLET 1 TABLET DAY 1, DAILY ON DAILY ON THEN 1 DAYS 2 TO DAYS 2 TO TABLET 5. 5. DAILY ON DAYS 2 TO 5. benzonatate benzonatate No benzonatat [place] 100 mg 100 mg e 100 mg [facility] capsule capsule capsule Urolog y benzonatate benzonatate No benzonatat [place] 200 mg 200 mg e 200 mg [facility] capsule capsule capsule Urolog y cefpodoxime cefpodoxime No cefpodoxim [place] 200 mg 200 mg e 200 mg [facility] tablet TAKE tablet TAKE tablet Urology 1 TABLET BY 1 TABLET BY TAKE 1 MOUTH EVERY MOUTH EVERY TABLET BY 12 HOURS 12 HOURS MOUTH FOR 7 DAYS FOR 7 DAYS EVERY 12 HOURS FOR 7 DAYS cefuroxime cefuroxime No cefuroxime [place] axetil 500 axetil 500 axetil 500 [facility] mg tablet mg tablet mg tablet Urology clonazepam clonazepam No clonazepam [place] 0.25 mg 0.25 mg 0.25 mg [facility] disintegrat disintegrat disintegra Urology ing tablet ing tablet ting tablet doxycycline doxycycline No doxycyclin [place] hyclate 100 hyclate 100 e hyclate [facility] mg capsule mg capsule 100 mg U rology capsule doxycycline doxycycline No doxycyclin [place] hyclate 100 hyclate 100 e hyclate [facility] mg tablet mg tablet 100 mg Uro logy Take 1 Take 1 tablet tablet tablet Take 1 twice a day twice a day tablet by oral by oral twice a route for 7 route for 7 day by days. days. oral route for 7 days. doxycycline doxycycline No doxycyclin [place] hyclate 50 hyclate 50 e hyclate [facility] mg capsule mg capsule 50 mg Ur ology capsule fluoxetine fluoxetine No fluoxetine [place] 40 mg 40 mg 40 mg [facility] capsule capsule capsule Urolog y fluticasone fluticasone No fluticason [place] propionate propionate e Met ro 50 50 propionate Urology mcg/actuati mcg/actuati 50 on nasal on nasal mcg/actuat spray,suspe spray,suspe ion nasal nsion nsion spray,susp ension nitrofurant nitrofurant No nitrofuran [place] oin oin toin [facility] monohydrate monohydrate monohydrat Urology /macrocryst /macrocryst e/macrocry als 100 mg als 100 mg stals 100 capsule capsule mg capsule oxybutynin oxybutynin No oxybutynin [place] chloride ER chloride ER chloride [facility] 10 mg 10 mg ER 10 mg Urology tablet,exte tablet,exte tablet,ext nded nded ended release 24 release 24 release 24 hr TAKE 1 hr TAKE 1 hr TAKE 1 TABLET BY TABLET BY TABLET BY MOUTH EVERY MOUTH EVERY MOUTH DAY FOR 14 DAY FOR 14 EVERY DAY DAYS DAYS FOR 14 DAYS pantoprazol pantoprazol No pantoprazo [place] e 40 mg e 40 mg le 40 mg [facility] tablet,farrukh tablet,farrukh tablet,del Urology yed release yed release ayed release prednisolon prednisolon No prednisolo [place] e acetate 1 e acetate 1 ne acetate [facility] % eye % eye 1 % eye Urology drops,suspe drops,suspe drops,susp nsion nsion ension prednisone prednisone No prednisone [place] 10 mg 10 mg 10 mg [facility] tablet tablet tablet Urology Pyridium Pyridium No Pyridium [place] ston 200 mg 200 mg 200 mg [facility] tablet TAKE tablet TAKE tablet Urology 1 TABLET BY 1 TABLET BY TAKE 1 MOUTH THREE MOUTH THREE TABLET BY TIMES DAILY TIMES DAILY MOUTH FOR 3 DAYS FOR 3 DAYS THREE TIMES DAILY FOR 3 DAYS [place] [facility] 50 [place] [facility] 50 No 1mL Eric BCG [place] mg mg 50 mg [facility] intravesica intravesica intravesic Urology l l al suspension suspension suspension Instill 1 Instill 1 Instill 1 mL by mL by mL by intravesica intravesica intravesic l route. l route. al route. tramadol 50 tramadol 50 No tramadol [place] mg tablet mg tablet 50 mg Metr o tablet Urology trazodone trazodone No trazodone [place] 50 mg 50 mg 50 mg [facility] tablet tablet tablet Urology Immunizations Ordered Filled Immunization Date Status Comments Sour e Immunization Name Name SARS-COV-2 COVID-19 2020-06-19 Completed [facility] 00:00:00 [facility] SARS-COV-2 COVID-19 2020-06-19 Completed [facility] PFIZER VACCINE 00:00:00 [facility] SARS-COV-2 COVID-19 2020-06-19 Completed [facility] of PFIZER VACCINE 00:00:00 [facility] SARS-COV-2 COVID-19 2020-05-29 Completed [facility] of PFIZER VACCINE 00:00:00 [facility] SARS-COV-2 COVID-19 2020-05-29 Completed [facility] of PFIZER VACCINE 00:00:00 [facility] SARS-COV-2 COVID-19 2020-05-29 Completed [facility] of PFIZER VACCINE 00:00:00 [facility] influenza, influenza, 2020-01-11 Completed [facility] injectable, injectable, 00:00:00 Urology quadrivalent quadrivalent influenza, influenza, 2020-01-11 Completed [facility] injectable, injectable, 00:00:00 Urology quadrivalent quadrivalent influenza, influenza, 2020-01-11 Completed [facility] injectable, injectable, 00:00:00 Urology quadrivalent quadrivalent influenza, influenza, 2020-01-11 Completed [facility] injectable, injectable, 00:00:00 Urology quadrivalent quadrivalent influenza, influenza, 2020-01-11 Completed [facility] injectable, injectable, 00:00:00 Urology quadrivalent quadrivalent influenza, influenza, 2020-01-11 Completed [facility] injectable, injectable, 00:00:00 Urology quadrivalent quadrivalent influenza, influenza, 2020-01-11 Completed [facility] injectable, injectable, 00:00:00 Urology quadrivalent quadrivalent influenza, influenza, 2020-01-11 Completed [facility] injectable, injectable, 00:00:00 Urology quadrivalent quadrivalent influenza, influenza, 2020-01-11 Completed [facility] injectable, injectable, 00:00:00 Urology quadrivalent quadrivalent Vital Signs Vital Name Observation Time Observation Value Comments Source Height 2021-04-18 00:00:00 64 [in_i] [facility] U[facility] BMI (Body Mass 2021-04-18 00:00:00 23.2 kg/m2 [place] [facility] Index) [facility] Body Weight 2021-04-18 00:00:00 135 [lb_av] [facility] Height 2021-04-04 00:00:00 64 [in_i] [facility] BMI (Body Mass 2021-04-04 00:00:00 23.2 kg/m2 [place] [facility] Index) [facility] Body Weight 2021-04-04 00:00:00 135 [lb_av] [facility] Height 2021-03-14 00:00:00 64 [in_i] [facility] BMI (Body Mass 2021-03-14 00:00:00 23.2 kg/m2 [place] [facility] Index) [facility] Body Weight 2021-03-14 00:00:00 135 [lb_av] [facility] Height 2021-02-08 00:00:00 64 [in_i] [facility] BMI (Body Mass 2021-02-08 00:00:00 23.2 kg/m2 [place] [facility] Index) [facility] Body Weight 2021-02-08 00:00:00 135 [lb_av] [facility] Height 2021-01-03 00:00:00 64 [in_i] [facility] Height 2020-12-23 00:00:00 64 [in_i] [facility] BMI (Body Mass 2020-12-23 00:00:00 23.2 kg/m2 [place] [facility] Index) [facility] Body Weight 2020-12-23 00:00:00 135 [lb_av] [facility] Height 2020-12-14 00:00:00 64 [in_i] [facility] BMI (Body Mass 2020-12-14 00:00:00 23.2 kg/m2 [place] [facility] Index) U[facility] Body Weight 2020-12-14 00:00:00 135 [lb_av] [facility] Procedures Procedure Date / Time Performed Performing Clinician [facility] e CT, abdomen + pelvis, 2020-12-14 00:00:00 [place] [facility] w/o contrast Urology Plan of Care Planned Activity Planned Date Details Comments Source Future Scheduled 2022-01-10 HEPATITIS B VACCINES [facility] Test 02:04:50 (1 of 3 - 3-dose series) [code = HEPATITIS B VACCINES (1 of 3 - 3-dose series)] Future Scheduled 2022-01-10 Pneumococcal Vaccine: [facility] Test 02:04:50 Pediatrics (0 to 5 Years) and At-Risk Patients (6 to 64 Years) (1 - PCV) [code = Pneumococcal Vaccine: Pediatrics (0 to 5 Years) and At-Risk Patients (6 to 64 Years) (1 - PCV)] Future Scheduled 2022-01-10 Hepatitis C screening [facility] Test 02:04:50 (procedure) [code = 462881100] Future Scheduled 2022-01-10 Screening for [facility] Test 02:04:50 malignant neoplasm of cervix (procedure) [code = 045339910] Future Scheduled 2022-01-10 BREAST CANCER [facility] Test 02:04:50 SCREENING [code = BREAST CANCER SCREENING] Future Scheduled 2022-01-10 COLONOSCOPY SCREENING [facility] Test 02:04:50 [code = COLONOSCOPY SCREENING] Future Scheduled 2022-01-10 SHINGLES VACCINES (1 [facility] Test 02:04:50 of 2) [code = SHINGLES VACCINES (1 of 2)] Future Scheduled 2022-01-10 COVID-19 VACCINE (3 - [facility] Test 02:04:50 Booster for Pfizer series) [code = COVID-19 VACCINE (3 - Booster for Pfizer series)] Future Scheduled 2022-01-10 INFLUENZA VACCINE [facility] Test 02:04:50 [code = INFLUENZA VACCINE] Diagnostic Test 2021-04-18 urinalysis, dipstick [place] [facility] Pending 00:00:00 [code = urinalysis, Urology dipstick] Diagnostic Test 2021-04-18 culture, urine [code [place] [facility] Pending 00:00:00 = culture, urine] Urology Encounters Start End Encounter Admission Attending Care Care Encounter Source Date/Time Date/Time Type Type Clinicians Facility Department ID 2021-08-10 2021-08-10 Outpatient [facility]_L [facility] HMU [id number] [place] 03:04:00 03:04:00 [facility] 2021-07-06 2021-07-06 Outpatient [facility]L [facility] HMU [id number] [place] 06:45:00 06:45:00 [facility] 2021-06-06 2021-06-06 Outpatient [facility]_L [facility]U HMU [id number] [place] 03:08:00 03:08:00 [facility] 2021-06-01 2021-06-01 Outpatient [facility]_L HMU HMU [id number] [place] 02:55:00 02:55:00 [facility] 2021-04-27 2021-04-27 Outpatient [facility]_L HMU HMU [id number] [place] 03:41:00 03:41:00 [facility] 2021-04-22 2021-04-22 Outpatient [facility]_L HMU HMU [id number] [place] 12:02:00 12:02:00 [facility] 2021-04-21 2021-04-21 Outpatient [facility]_L HMU HMU [id number] [place] 09:22:00 09:22:00 [facility] 2021-04-20 2021-04-20 Outpatient [facility]_L HMU HMU [id number] [place] 10:55:00 10:55:00 [facility] 2021-04-19 2021-04-19 Outpatient [facility]_L [facility]U HMU [id number] [place] 04:14:00 04:14:00 [facility] 2021-04-18 2021-04-18 Outpatient [facility]_L HMU HMU [id number] [place] 02:09:00 02:09:00 [facility] 2021-04-18 2021-04-18 [place] [facility] [id number] [facility] 00:00:00 00:00:00 Adalid Rizvi MD: [id number] [facility] [address], [place] [address] , Ph. 2021-04-18 2021-04-18 Out[facility] [place], [facility]U HMU [id number] 00:00:00 00:00:00 Yue [id number] 2021-04-14 2021-04-14 Outpatient [facility]L [facility] HMU [id number] [place] 03:15:00 03:15:00 [facility] 2021-04-12 2021-04-12 Outpatient [facility]_L [facility]U HMU [id number] [place] 11:34:00 11:34:00 [facility] 2021-04-11 2021-04-11 Outpatient [facility]_L [facility]U HMU [id number] [place] 02:58:00 02:58:00 [facility] 2021-04-11 2021-04-11 Yue [facility] [place] [id number] [place] 00:00:00 00:00:00 Adalid Rizvi MD: [id number] [facility] [address] [place] [address] , Ph. 2021-04-05 2021-04-05 Outpatient [facility]L [facility] HMU [id number] [place] 05:56:00 05:56:00 [facility] 2021-04-04 2021-04-04 Outpatient [facility]L [facility] HMU [id number] [place] 01:59:00 01:59:00 [facility] 2021-04-04 2021-04-04 [place] - [id number] [place] 00:00:00 00:00:00 Adalid Rizvi MD: [id number] [facility] [address], [place] [address] , Ph. 2021-04-04 2021-04-04 [facility] [place], HMU HMU [id number] 00:00:00 00:00:00 Yue [id number] 2021-03-29 2021-03-29 Outpatient [facility]L [facility] HMU [id number] [place] 04:18:00 04:18:00 [facility] 2021-03-23 2021-03-23 Outpatient [facility]L [facility] HMU [id number] [place] 11:43:00 11:43:00 [facility] 2021-03-22 2021-03-22 Outpatient [facility]L [facility] HMU [id number] [place] 10:49:00 10:49:00 [facility] 2021-03-21 2021-03-21 Outpatient [facility]_L [facility] HMU [id number] [place] 02:55:00 02:55:00 [facility] 2021-03-21 2021-03-21 Yue U [place] - [id number] [facility] 00:00:00 00:00:00 Khloe, Adalid villaseñor MD: [address] [facility] [address], [place] [address] , Ph. 2021-03-20 2021-03-20 Outpatient [facility]L [facility] HMU [id number] [place] 01:01:00 01:01:00 [facility] 2021-03-15 2021-03-15 Outpatient [facility]L [facility] HMU [id number] [place] 04:15:00 04:15:00 [facility] 2021-03-14 2021-03-14 Outpatient [facility]_L HMU HMU [id number] [facility]202 [place] 03:52:00 03:52:00 [facility] 2021-03-14 2021-03-14 Yue [facility] [id number] [facility] 00:00:00 00:00:00 Adalid Rizvi MD: [address] [facility] [address], [place] [address] , Ph. 2021-03-14 2021-03-14 [facility] [place], HMU HMU [id number] 00:00:00 00:00:00 Yue [id number] 2021-03-07 2021-03-07 Outpatient [facility]L [facility] HMU [id number] [place] 03:33:00 03:33:00 [id number] [facility] 2021-02-17 2021-02-17 Outpatient [facility]L [facility] HMU [id number] [place] 05:12:00 05:12:00 [id number] [facility] 2021-02-11 2021-02-11 Outpatient [facility]L [facility] HMU [id number] [place] 03:07:00 03:07:00 [id number] [facility] 2021-02-09 2021-02-09 Outpatient [facility]L [facility] HMU [id number] [place] 02:56:00 02:56:00 [id number] [facility] 2021-02-08 2021-02-08 Outpatient [facility]L [facility] U [id number] [place] 02:22:00 02:22:00 [id number] [facility] 2021-02-08 2021-02-08 Yue [facility] [place] - [id number] Raghu coleman 00:00:00 00:00:00 Khloe, Adalid villaseñor MD: [address] [facility] [address], [place] [address] , Ph. 2021-02-08 2021-02-08 Outpatient [place], U [facility] [id number] 00:00:00 00:00:00 Yue [id number] 2021-01-27 2021-01-27 Outpatient [facility]_L [facility] U [id number] [place] 11:17:00 11:17:00 [id number] [facility] 2021-01-26 2021-01-27 Outpatient KHLOE, [facility] [id number] [place] 00:00:00 00:00:00 YUE [address] 2021-01-21 2021-01-21 Outpatient KHLOE, [facility] [id number] [place] 00:00:00 00:00:00 YUE [address] 2021-01-19 2021-01-19 Outpatient [facility]on_L U U [id number] [place] 10:01:00 10:01:00 [id number] [facility] 2021-01-04 2021-01-04 Outpatient [facility]_L U U [id number] [place] 09:30:00 09:30:00 [id number] [facility] 2021-01-03 2021-01-03 Outpatient [facility] U [id number] [place] 01:48:00 01:48:00 [id number] [facility] 2021-01-03 2021-01-03 Outpatient Khloe, U [facility] deaeb [id number] 00:00:00 00:00:00 Yue [id number] 2021-01-03 2021-01-03 Yue [facility] [place] [facility] [id number] [facility] 00:00:00 00:00:00 Adalid Rizvi MD: [address] [facility] [address], [place] [address] , Ph. 2020-12-30 2020-12-30 Outpatient [facility] U [id number] [place] 10:56:00 10:56:00 [id number] [facility] 2020-12-29 2020-12-29 Yue [facility] - [id number] H [facility] 00:00:00 00:00:00 Adalid Rizvi MD: [address] [facility]rology [facility] [address] [address] , Ph. 2020-12-29 2020-12-29 Outpatient Khloe, U [facility] [id number] 00:00:00 00:00:00 Yue [id number] 2020-12-29 2020-12-29 Outpatient KHLOE, [facility] 021 [id number] [place] 00:00:00 00:00:00 YUE [address] 2020-12-28 2020-12-28 Outpatient KHLOE, [facility] [id number] [place] 00:00:00 00:00:00 YUE [address] 2020-12-27 2020-12-27 Outpatient [facility] U [id number] [place] 04:08:00 04:08:00 [id number] [facility] 2020-12-24 2020-12-24 Outpatient [facility] HMU [id number] [place] 12:45:00 12:45:00 [id number] [facility] 2020-12-23 2020-12-23 Outpatient [facility]L [facility] HMU [id number] [place] 03:22:00 03:22:00 [id number] [facility] 2020-12-23 2020-12-23 Yue [facility] [place] - [id number] [place] 00:00:00 00:00:00 Adalid Rizvi MD: [address] [facility] [address], [place] [address] , Ph. 2020-12-23 2020-12-23 Outpatient Khloe, HMU [id number] 00:00:00 00:00:00 Yue [id number] 2020-12-20 2020-12-20 Outpatient [facility]L [facility] U [id number] [place] 12:00:00 12:00:00 [id number] [facility] 2020-12-20 2020-12-20 Yue [facility] [place] - [id number] [facility] 00:00:00 00:00:00 Adalid Rizvi MD: [address] [facility] [address] [facility] [address], - U [facility] [address] , Ph. 2020-12-20 2020-12-20 Outpatient Khloe, [facility]U U [id number] 00:00:00 00:00:00 Yue [id number] 2020-12-16 2020-12-16 Outpatient [facility] U [id number] [place] 09:28:00 09:28:00 [id number] [facility] 2020-12-14 2020-12-14 Outpatient [facility]L [facility] U [id number] [place] 04:46:00 04:46:00 [id number] [facility] 2020-12-14 2020-12-14 Yue [facility] [place] [place] - [id number] [facility] 00:00:00 00:00:00 Adalid Rivzi MD: [id number] [facility] [phone], [place] [address] , Ph. 2020-12-14 2020-12-14 Outpatient Khloe, [facility] [id number] [id number] 00:00:00 00:00:00 Yue [id number] 2020-12-13 2020-12-13 Outpatient Dany [facility] 4[address] [facility] [place] 11:28:00 11:28:00 [id number] [facility] 2020-11-05 2020-11-05 Letter WATSON Lepe [id number] [facility] 00:00:00 00:00:00 (Out) Vianney Cerrato PARKER [id number] it y of [facility] [id number] Jose Luis as [id number] [address] 2020-11-03 2020-11-03 Laboratory Only, Ang Db Test [facility] [id number] [facility] 15:47:19 16:02:19 Only Kalpesh Ant [facility] [id number] ity [facility] [id number] Jose Luis as Kang?Blea [id number] [address] Medical Office Building 2020-11-03 2020-11-03 [facility] [id number] [facility] 15:40:00 15:40:00 ANT [facility] 2020-10-12 2020-10-12 [facility] [id number] [facility] 10:40:00 10:43:24 EVERARDO [facility] 2020-05-18 2020-05-18 Outpatient SAM Rodriguez [facility] [place] [id number] [facility] 12:00:00 12:00:00 Tereza 38 [facility] Results Test Description Test Time Test Comments Results Result Comments Source Urinalysis macro (dipstick) panel - Urine 2021-04-18 13:21:0 0 Test Item Value Reference Range Interpretation Comme nts leukocytes (test code = moderate neg leukocytes) urobilinogen (test code = 0.2 E.U./dL sm amt (.5-1mg/dL) urobilinogen) protein (test code = negative See_Comment [Autom ated message] The protein) system which ge nerated this result tra nsmitted reference range : <=150 mg/d. The refer ence range was not used to interpret this result as normal/abnormal . pH (test code = pH) 7.0 4.5-8 blood (test code = blood) trace-lysed See_Comment [ Automated message] The system which ge nerated this result tra nsmitted reference range : <=3 RBC. The reference r alvarez was not used to int erpret this result as normal/abnormal . specific gravity (test code 1.010 1.005-1.025 = specific gravity) ketone (test code = ketone) negative none bilirubin (test code = negative neg bilirubin) glucose (test code = negative See_Comment [Autom ated message] The glucose) system which ge nerated this result tra nsmitted reference range : <=130 mg/d. The refer ence range was not used to interpret this result as normal/abnormal . color (test code = color) yellow yellow clarity (test code = clear clear or cloudy clarity) nitrite (test code = negative neg nitrite) [facility] UrologyUrinalysis macro (dipstick) panel - [id number] 14:08:00 Test Item Value Reference Range Interpretation Comments leukocytes (test code moderate neg = leukocytes) urobilinogen (test 2.0 E.U./dL sm amt (.5-1mg/dL) code = urobilinogen) protein (test code = trace See_Comment [Autom ated protein) message] The sy stem which generated this result transmitted reference range : <=150 mg/d. The reference range was not used to interpret this result as normal/abnormal . pH (test code = pH) 7.0 4.5-8 blood (test code = negative See_Comment [Automat ed blood) message] The sy stem which generated this result transmitted reference range : <=3 RBC. The reference range was not used to interpret this result as normal/abnormal . specific gravity 1.020 1.005-1.025 (test code = specific gravity) ketone (test code = trace none ketone) bilirubin (test code negative neg = bilirubin) glucose (test code = negative See_Comment [Autom ated glucose) message] The sy stem which generated this result transmitted reference range : <=130 mg/d. The reference range was not used to interpret this result as normal/abnormal . color (test code = yellow yellow color) clarity (test code = clear clear or cloudy clarity) nitrite (test code = negative neg nitrite) [facility] UrologyBacteria identified in Urine by [id number] 00:00:00 [facility] macro (dipstick) panel - Urine 2021-04-04 13:19:00 Test Item Value Reference Range Interpretation Comments leukocytes (test code large neg = leukocytes) urobilinogen (test >=8.0 sm amt (.5-1mg/dL) code = urobilinogen) protein (test code = 30 mg/dL See_Comment [Autom ated message] protein) The system Skeed generated this result transmit hiram reference range : <=150 mg/d. The reference range was not used to interpret this result as normal/abnormal . pH (test code = pH) 7.0 4.5-8 blood (test code = negative See_Comment [Automat ed message] blood) The system Skeed generated this result transmit hiram reference range : <=3 RBC. The refere nce range was not u sed to interpret th is result as normal/abnormal . specific gravity (test 1.020 1.005-1.025 code = specific gravity) ketone (test code = 15 mg/dL none ketone) bilirubin (test code = moderate neg bilirubin) glucose (test code = 100 mg/dL See_Comment [Autom ated message] glucose) The system Skeed generated this result transmit hiram reference range : <=130 mg/d. The reference range was not used to interpret this result as normal/abnormal . color (test code = yellow yellow color) clarity (test code = clear clear or cloudy clarity) nitrite (test code = negative neg nitrite) [facility] UrologyUrinalysis macro (dipstick) panel - [id number] 13:19:00 Test Item Value Reference Range Interpretation Comments leukocytes (test code large neg = leukocytes) urobilinogen (test >=8.0 sm amt (.5-1mg/dL) code = urobilinogen) protein (test code = 30 mg/dL See_Comment [Autom ated message] protein) The system Skeed generated this result transmit hiram reference range : <=150 mg/d. The reference range was not used to interpret this result as normal/abnormal . pH (test code = pH) 7.0 4.5-8 blood (test code = negative See_Comment [Automat ed message] blood) The system Skeed generated this result transmit hiram reference range : <=3 RBC. The refere nce range was not u sed to interpret th is result as normal/abnormal . specific gravity (test 1.020 1.005-1.025 code = specific gravity) ketone (test code = 15 mg/dL none ketone) bilirubin (test code = moderate neg bilirubin) glucose (test code = 100 mg/dL See_Comment [Autom ated message] glucose) The system Skeed generated this result transmit hiram reference range : <=130 mg/d. The reference range was not used to interpret this result as normal/abnormal . color (test code = yellow yellow color) clarity (test code = clear clear or cloudy clarity) nitrite (test code = negative neg nitrite) [facility] UrologyBacteria identified in Urine by [id number] 00:00:00 [facility] UrologyUrinalysis macro (dipstick) panel - Urine 2021-03-14 13:27:00 Test Item Value Reference Range Interpretation Comments leukocytes (test code moderate neg = leukocytes) urobilinogen (test 4.0 E.U./dL sm amt (.5-1mg/dL) code = urobilinogen) protein (test code = trace See_Comment [Autom ated protein) message] The sy stem which generated this result transmitted reference range : <=150 mg/d. The reference range was not used to interpret this result as normal/abnormal . pH (test code = pH) 8.5 4.5-8 blood (test code = negative See_Comment [Automat ed blood) message] The sy stem which generated this result transmitted reference range : <=3 RBC. The reference range was not used to interpret this result as normal/abnormal . specific gravity 1.020 1.005-1.025 (test code = specific gravity) ketone (test code = trace none ketone) bilirubin (test code negative neg = bilirubin) glucose (test code = negative See_Comment [Autom ated glucose) message] The sy stem which generated this result transmitted reference range : <=130 mg/d. The reference range was not used to interpret this result as normal/abnormal . color (test code = yellow yellow color) clarity (test code = clear clear or cloudy clarity) nitrite (test code = negative neg nitrite) [facility] UrologyUrinalysis macro (dipstick) panel - [id number] 13:27:00 Test Item Value Reference Range Interpretation Comments leukocytes (test code moderate neg = leukocytes) urobilinogen (test 4.0 E.U./dL sm amt (.5-1mg/dL) code = urobilinogen) protein (test code = trace See_Comment [Autom ated protein) message] The sy stem which generated this result transmitted reference range : <=150 mg/d. The reference range was not used to interpret this result as normal/abnormal . pH (test code = pH) 8.5 4.5-8 blood (test code = negative See_Comment [Automat ed blood) message] The sy stem which generated this result transmitted reference range : <=3 RBC. The reference range was not used to interpret this result as normal/abnormal . specific gravity 1.020 1.005-1.025 (test code = specific gravity) ketone (test code = trace none ketone) bilirubin (test code negative neg = bilirubin) glucose (test code = negative See_Comment [Autom ated glucose) message] The sy stem which generated this result transmitted reference range : <=130 mg/d. The reference range was not used to interpret this result as normal/abnormal . color (test code = yellow yellow color) clarity (test code = clear clear or cloudy clarity) nitrite (test code = negative neg nitrite) [facility] UrologyBacteria identified in Urine by [id number] 00:00:00 [facility] UrologyBacteria identified in Urine by Culture 2021-03-14 00:00:00[facility] [id number] (COVID-19) RNA [Presence] in Respiratory specimen by AIDEN with probe [id number] 21:04:02 Test Item Value Reference Range Interpretation Comments SARS-CoV-2 (COVID-19) RNA Not detected Not-Detected [Presence] in Respiratory specimen by AIDEN with probe detection (test code = 56346-9) Whether patient is employed in a healthcare setting (test code = 94118-3) Whether the patient has symptoms related to condition of interest (test code = 61486-9) Patient was hospitalized because of this condition (test code = 89346-9) Whether the patient was admitted to intensive care unit (ICU) for condition of interest (test code = 32321-8) Whether patient resides in a congregate care setting (test code = 44052-8) ADALID LLANESSARS-CoV-2 (COVID-19) RNA [Presence] in Respiratory specimen by AIDEN with probe [id number] 21:14:12 Test Item Value Reference Range Interpretation Comments SARS-CoV-2 (COVID-19) RNA Not detected Not-Detected [Presence] in Respiratory specimen by AIDEN with probe detection (test code = 22894-3) Whether patient is employed in a healthcare setting (test code = 48636-2) Whether the patient has symptoms related to condition of interest (test code = 37162-3) Patient was hospitalized because of this condition (test code = 29650-3) Whether the patient was admitted to intensive care unit (ICU) for condition of interest (test code = 24719-5) Whether patient resides in a congregate care setting (test code = 92226-2) ADALID KILGORE WESTBacteria identified in Urine by [id number] 00:00:00 Test Item Value Reference Range Interpretation Comments Bacteria identified in Urine by no growth no growth Culture (test code = 630-4) Adalid Bailey UrologyBacteria identified in Urine by [id number] 00:00:00 Test Item Value Reference Range Interpretation Comments Bacteria identified in Urine by no growth no growth Culture (test code = 630-4) Adalid Bailey UrologyUrinalysis macro (dipstick) panel - [id number] 14:35:00 Test Item Value Reference Range Interpretation Comments leukocytes (test code large neg = leukocytes) urobilinogen (test >=8.0 sm amt (.5-1mg/dL) code = urobilinogen) protein (test code = >=300 See_Comment [Autom ated message] protein) The system Skeed generated this result transmit hiram reference range : <=150 mg/d. The reference range was not used to interpret this result as normal/abnormal . pH (test code = pH) 8.5 4.5-8 blood (test code = large See_Comment [Automat ed message] blood) The system Skeed generated this result transmit hiram reference range : <=3 RBC. The refere nce range was not u sed to interpret th is result as normal/abnormal . specific gravity (test 1.015 1.005-1.025 code = specific gravity) ketone (test code = 40 mg/dL none ketone) bilirubin (test code = large neg bilirubin) glucose (test code = 250 mg/dL See_Comment [Autom ated message] glucose) The system Skeed generated this result transmit hiram reference range : <=130 mg/d. The reference range was not used to interpret this result as normal/abnormal . color (test code = yellow yellow color) clarity (test code = clear clear or cloudy clarity) nitrite (test code = positive neg nitrite) [facility] UrologyUrinalysis macro (dipstick) panel - [id number] 14:35:00 Test Item Value Reference Range Interpretation Comments leukocytes (test code large neg = leukocytes) urobilinogen (test >=8.0 sm amt (.5-1mg/dL) code = urobilinogen) protein (test code = >=300 See_Comment [Autom ated message] protein) The system Skeed generated this result transmit hiram reference range : <=150 mg/d. The reference range was not used to interpret this result as normal/abnormal . pH (test code = pH) 8.5 4.5-8 blood (test code = large See_Comment [Automat ed message] blood) The system Skeed generated this result transmit hiram reference range : <=3 RBC. The refere nce range was not u sed to interpret th is result as normal/abnormal . specific gravity (test 1.015 1.005-1.025 code = specific gravity) ketone (test code = 40 mg/dL none ketone) bilirubin (test code = large neg bilirubin) glucose (test code = 250 mg/dL See_Comment [Autom ated message] glucose) The system Skeed generated this result transmit hiram reference range : <=130 mg/d. The reference range was not used to interpret this result as normal/abnormal . color (test code = yellow yellow color) clarity (test code = clear clear or cloudy clarity) nitrite (test code = positive neg nitrite) [place] [facility] identified in Urine by [id number] 00:00:00 Test Item Value Reference Range Interpretation Comments Bacteria identified in Urine by see below no growth Culture (test code = 630-4) [place] [facility]rologyBacteria identified in Urine by [id number] 00:00:00 Test Item Value Reference Range Interpretation Comments Bacteria identified in Urine by see below no growth Culture (test code = 630-4) [facility] UrologyBacteria identified in Urine by [id number] 00:00:00 Test Item Value Reference Range Interpretation Comments Bacteria identified in Urine by see below no growth Culture (test code = 630-4) [facility] UrologyCytology report of Unspecified specimen Cyto stain 2020-12-14 00:00:00Non-edi programmer [facility] UrologyCytology report of Unspecified specimen Cyto [id number] 00:00:00Non-edi programmer [facility] UrologyCytology report of Unspecified specimen Cyto [id number] 00:00:00Non- edi programmer [facility] Urology
[2022-02-01 13:45] LABS: Absolute Lymphocytes (CBC) 1.2 K/uL (0.7-4.9); Hematocrit 24.2 % (36.0-45.0); Lymphocytes % 14.7 % (15.3-44.8); MCV 62.8 fL (80-100); MPV 8.2 fL (7.6-11.3); RBC Red Blood Cell Count 3.86 M/uL (3.86-4.86)
[2022-02-01 14:03] LABS: Albumin 3.7 g/dL (3.4-5.0); Bilirubin Total 1.8 mg/dL (0.2-1.0); Potassium 3.5 mmol/L (3.5-5.1)
[2022-02-01] MEDS ORDERED: NA CHLORIDE 0.9% 0 ML ONE (15:27)
--- NOTE | 2022-02-01 15:52 | EDPHYS ---
Physician Documentation [facility] Name: Cynthia Giles Age: 56 yrs Sex: Female : 1965 Arrival Date: 02/01/2022 Time: 11:15 Bed 18 Private MD: ED Physician Israel Smith HPI: 02/01 11:56 This 56 yrs old Female presents to ER via Ambulatory with complaints of Sent By rt Pickett for Blood Transfusion. 11:56 Weakness, anemia. Onset: The symptoms/episode began/occurred chronic. Severity of rt symptoms: At their worst the symptoms were moderate. Patient presents to the ED from senior ui ux developer for anemia for blood transfusion. Patient reportedly has had progressively worsening fatigue, weakness. Denies active bleeding at this time, reportedly was anemic. Denies any pain, other acute complaints. Symptoms are moderate in severity, no other aggravating or alleviating factors. Historical: - Allergies: 11:25 No Known Drug Allergies; ll1 - PMHx: 11:25 Anxiety; Bladder cancer; depressive disorder; Anemia; ll1 - PSHx: 11:25 back; ll1 - Immunization history:: Client reports receiving the 2nd dose of the Covid vaccine. - Social history:: Smoking status: Patient reports the use of cigarette tobacco products, smokes one-half pack cigarettes per day. - Family history:: not pertinent. ROS: 11:56 Eyes: Negative for injury, pain, redness, and discharge, ENT: Negative for injury, rt pain, and discharge, Neck: Negative for injury, pain, and swelling, Cardiovascular: Negative for chest pain, palpitations, and edema, Respiratory: Negative for shortness of breath, cough, wheezing, and pleuritic chest pain, Abdomen/GI: Negative for abdominal pain, nausea, vomiting, diarrhea, and constipation, Back: Negative for injury and pain, MS/Extremity: Negative for injury and deformity, Skin: Negative for injury, rash, and discoloration, Neuro: Negative for headache, weakness, numbness, tingling, and seizure, Psych: Negative for depression, anxiety, suicide ideation, homicidal ideation, and hallucinations. 11:56 Constitutional: Positive for fatigue, Negative for fever. Exam: 11:56 Constitutional: This is a well developed, well nourished patient who is awake, alert, rt and in no acute distress. Head/Face: Normocephalic, atraumatic. Eyes: Pupils equal round and reactive to light, extra-ocular motions intact. Lids and lashes normal. Conjunctiva and sclera are non-icteric and not injected. Cornea within normal limits. Periorbital areas with no swelling, redness, or edema. ENT: Nares patent. No nasal discharge, no septal abnormalities noted. Tympanic membranes are normal and external auditory canals are clear. Oropharynx with no redness, swelling, or masses, exudates, or evidence of obstruction, uvula midline. Mucous membranes moist. Neck: Trachea midline, no thyromegaly or masses palpated, and no cervical lymphadenopathy. Supple, full range of motion without nuchal rigidity, or vertebral point tenderness. No Meningismus. Chest/axilla: Normal chest wall appearance and motion. Nontender with no deformity. No lesions are appreciated. Cardiovascular: Regular rate and rhythm with a normal S1 and S2. No gallops, murmurs, or rubs. Normal PMI, no JVD. No pulse deficits. Respiratory: Lungs have equal breath sounds bilaterally, clear to auscultation and percussion. No rales, rhonchi or wheezes noted. No increased work of breathing, no retractions or nasal flaring. Abdomen/GI: Soft, non-tender, with normal bowel sounds. No distension or tympany. No guarding or rebound. No evidence of tenderness throughout. Skin: Warm, dry with normal turgor. Normal color with no rashes, no lesions, and no evidence of cellulitis. MS/ Extremity: Pulses equal, no cyanosis. Neurovascular intact. Full, normal range of motion. Neuro: Awake and alert, GCS 15, oriented to person, place, time, and situation. Cranial nerves II-XII grossly intact. Motor strength 5/5 in all extremities. Sensory grossly intact. Cerebellar exam normal. Normal gait. Psych: Awake, alert, with orientation to person, place and time. Behavior, mood, and affect are within normal limits. Vital Signs: 11:26 BP 115 / 49; Pulse 84; Resp 18; Temp 98.3; Pulse Ox 100% on R/A; Weight 59.87 kg; ll1 Height 5 ft. 4 in. (162.56 cm); Pain 0/10; 12:17 BP 111 / 55; Pulse 85; Resp 16 S; Pulse Ox 98% on R/A; Pain 0/10; kc6 13:17 BP 130 / 61; Pulse 91; Resp 17 S; Pulse Ox 97% on R/A; Pain 0/10; kc6 14:17 BP 119 / 54; Pulse 82; Resp 16 S; Pulse Ox 100% on R/A; Pain 0/10; kc6 15:17 BP 109 / 58; Pulse 82; Resp 18 S; Pulse Ox 100% on R/A; Pain 0/10; kc6 15:49 BP 122 / 60; Pulse 82; Resp 20 S; Temp 98.4(O); Pulse Ox 100% on R/A; Pain 0/10; kc6 19:49 BP 117 / 66; Pulse 86; Resp 20; Pulse Ox 98% on R/A; ll3 11:26 Body Mass Index 22.66 (59.87 kg, 162.56 cm) ll1 MDM: 11:24 Patient medically screened. rt 15:52 Differential Diagnosis Anemia, hemorrhage, electrolyte abnormality. Data reviewed: rt vital signs, nurses notes, old medical records. ED course: Patient presents to the ED for blood transfusion. Discussed case with the patient's senior ui ux developer. Patient is stably anemic, however, given symptoms, will do transfusion. There is no obvious active bleeding at this time. Patient denies hematochezia, melena. Patient is stable for outpatient care, will follow-up closely on Sunday with her senior ui ux developer.. 02/01 11:42 Order name: CBC with Diff rt 02/01 11:42 Order name: CMP; Complete Time: 14:15 rt 02/01 13:00 Order name: Type And Screen em1 02/01 13:49 Order name: CBC Smear Scan EDMS 02/01 13:59 Order name: Bb Add On em1 02/01 12:20 Order name: Labs - recollect needed: please recollect green, lavender, and T/S; em1 Complete Time: 12:44 02/01 12:59 Order name: Labs - recollect needed: light green and T/S need to be recollected; again; em1 Complete Time: 13:33 02/01 14:33 Order name: Packed RBC Leukored EDMS 02/01 15:59 Order name: ABO/RH no charge EDMS Administered Medications: No medications were administered Disposition Summary: 02/01/22 15:52 Discharge Ordered Location: Home rt Problem: an ongoing problem rt Symptoms: have improved rt Condition: Stable rt Diagnosis - Anemia, unspecified rt Followup: rt - With: Felton Pickett MD - When: 2 - 3 days - Reason: Discharge Instructions: - Discharge Summary Sheet rt - Anemia rt - Blood Transfusion, Adult rt Forms: - Medication Reconciliation Form rt - Thank You Letter rt - Antibiotic Education rt - Prescription Opioid Use rt Signatures: Dispatcher [employer] Kofi Sawyer em1 Chiqui Caballero, RN RN ll1 Israel Smith MD MD rt Corrections: (The following items were deleted from the chart) 12:58 11:42 TYPE AND SCREEN+BB.LAB.BRZ ordered. [facility]
--- NOTE | 2022-02-01 15:52 | ER ---
Nurse's Notes [facility] Name: Cynthia Giles Age: 56 yrs Sex: Female : 1965 Arrival Date: 02/01/2022 Time: 11:15 Bed 18 Private MD: Diagnosis: Anemia, unspecified Presentation: 02/01 11:26 Chief complaint: Patient states: Dr. Pickett's office told her to come in to ED for ll1 blood transfusion. She is feeling weak and lethargic. Last HGB 7.6. Had blood drawn yesterday, and states she hasn't gotten those results yet. Coronavirus screen: Vaccine status: Patient reports receiving the 2nd dose of the covid vaccine. Client denies travel out of the [place] in the last 14 days. fatigue. Ebola Screen: Patient denies travel to an Ebola-affected area in the 21 days before illness onset. Initial Sepsis Screen: Does the patient meet any 2 criteria? No. Patient's initial sepsis screen is negative. Does the patient have a suspected source of infection? No. Patient's initial sepsis screen is negative. Risk Assessment: Do you want to hurt yourself or someone else? Patient reports no desire to harm self or others. Onset of symptoms is unknown. 11:26 Method Of Arrival: Ambulatory ll1 11:26 Acuity: [facility] 2 ll1 Triage Assessment: 11:28 General: Appears ill, Behavior is cooperative, appropriate for age. General: Here for ll1 blood transfusion. Pain: Denies pain. Neuro: Reports weakness fatigue. Historical: - Allergies: 11:25 No Known Drug Allergies; ll1 - PMHx: 11:25 Anxiety; Bladder cancer; depressive disorder; Anemia; ll1 - PSHx: 11:25 back; ll1 - Immunization history:: Client reports receiving the 2nd dose of the Covid vaccine. - Social history:: Smoking status: Patient reports the use of cigarette tobacco products, smokes one-half pack cigarettes per day. - Family history:: not pertinent. Screenin:17 Abuse screen: Denies threats or abuse. Denies injuries from another. Nutritional kc6 screening: No deficits noted. Tuberculosis screening: No symptoms or risk factors identified. Fall Risk No fall in past 12 months (0 pts). No secondary diagnosis (0 pts). IV access (20 points). Ambulatory Aid- None/Bed Rest/Nurse Assist (0 pts). Gait- Normal/Bed Rest/Wheelchair (0 pts) Mental Status- Oriented to own ability (0 pts). Total Palmer Fall Scale indicates No Risk (0-24 pts). Assessment: 12:00 General: Appears in no apparent distress. comfortable, Behavior is calm, cooperative, kc6 appropriate for age. Pain: Denies pain. Neuro: Knight Agitation-Sedation Scale (RASS): 0 - Alert and Calm Level of Consciousness is awake, alert, obeys commands, Oriented to person, place, time, situation, Appropriate for age. Cardiovascular: Heart tones S1 S2 present Capillary refill < 3 seconds. Respiratory: Airway is patent Trachea midline Respiratory effort is even, unlabored, Respiratory pattern is regular, symmetrical, Breath sounds are clear bilaterally. GI: No signs and/or symptoms were reported involving the gastrointestinal system. GI: Patient currently denies bloody stool, rectal bleeding. : No signs and/or symptoms were reported regarding the genitourinary system. EENT: No signs and/or symptoms were reported regarding the EENT system. Derm: No signs and/or symptoms reported regarding the dermatologic system. Skin is intact, Skin is pink, warm \T\ dry. Musculoskeletal: No signs and/or symptoms reported regarding the musculoskeletal system. Circulation, motion, and sensation intact. Capillary refill < 3 seconds, Range of motion: intact in all extremities. 13:00 Reassessment: Patient appears in no apparent distress at this time. No changes from kc6 previously documented assessment. Patient and/or family updated on plan of care and expected duration. Pain level reassessed. Patient is alert, oriented x 3, equal unlabored respirations, skin warm/dry/pink. Patient denies pain at this time. 14:00 Reassessment: Patient appears in no apparent distress at this time. No changes from kc6 previously documented assessment. Patient and/or family updated on plan of care and expected duration. Pain level reassessed. Patient is alert, oriented x 3, equal unlabored respirations, skin warm/dry/pink. Patient denies pain at this time. 15:00 Reassessment: Patient appears in no apparent distress at this time. No changes from kc6 previously documented assessment. Patient and/or family updated on plan of care and expected duration. Pain level reassessed. Patient is alert, oriented x 3, equal unlabored respirations, skin warm/dry/pink. Patient denies pain at this time. 15:55 Reassessment: discharge pending blood transfusion. kc6 16:00 Reassessment: Rubia Schuster (sister) [phone]. jd3 17:00 Reassessment: Patient appears in no apparent distress at this time. No changes from kc6 previously documented assessment. Patient and/or family updated on plan of care and expected duration. Pain level reassessed. Patient is alert, oriented x 3, equal unlabored respirations, skin warm/dry/pink. Patient denies pain at this time. 17:00 Reassessment: vital signs noted on transfusion flow sheet. kc6 18:00 Reassessment: Patient appears in no apparent distress at this time. No changes from kc6 previously documented assessment. Patient and/or family updated on plan of care and expected duration. Pain level reassessed. Patient is alert, oriented x 3, equal unlabored respirations, skin warm/dry/pink. Patient denies pain at this time. 19:00 Reassessment: Patient appears in no apparent distress at this time. No changes from kc6 previously documented assessment. Patient and/or family updated on plan of care and expected duration. Pain level reassessed. Patient is alert, oriented x 3, equal unlabored respirations, skin warm/dry/pink. Patient denies pain at this time. Patient states feeling better. Patient states symptoms have improved. Vital Signs: 11:26 BP 115 / 49; Pulse 84; Resp 18; Temp 98.3; Pulse Ox 100% on R/A; Weight 59.87 kg; ll1 Height 5 ft. 4 in. (162.56 cm); Pain 0/10; 12:17 BP 111 / 55; Pulse 85; Resp 16 S; Pulse Ox 98% on R/A; Pain 0/10; kc6 13:17 BP 130 / 61; Pulse 91; Resp 17 S; Pulse Ox 97% on R/A; Pain 0/10; kc6 14:17 BP 119 / 54; Pulse 82; Resp 16 S; Pulse Ox 100% on R/A; Pain 0/10; kc6 15:17 BP 109 / 58; Pulse 82; Resp 18 S; Pulse Ox 100% on R/A; Pain 0/10; kc6 15:49 BP 122 / 60; Pulse 82; Resp 20 S; Temp 98.4(O); Pulse Ox 100% on R/A; Pain 0/10; kc6 19:49 BP 117 / 66; Pulse 86; Resp 20; Pulse Ox 98% on R/A; ll3 11:26 Body Mass Index 22.66 (59.87 kg, 162.56 cm) ll1 ED Course: 11:15 Patient arrived in ED. rg4 11:18 Israel Smith MD is Attending Physician. rt 11:18 Arm band placed on Patient placed in an exam room, on a stretcher. ll1 11:28 Triage completed. ll1 11:40 Deirdre Lozano, RAFFY is Primary Nurse. kc6 12:04 CMP Sent. kc6 12:05 CBC with Diff Sent. kc6 12:13 Missed attempt(s): 20 gauge in right antecubital area. kc6 12:14 Missed attempt(s): 18 gauge in right forearm. kc6 12:19 Patient has correct armband on for positive identification. Bed in low position. Call jd3 light in reach. Side rails up X2. Adult w/ patient. Pulse ox on. NIBP on. 12:19 Inserted saline lock: 20 gauge in left forearm, using aseptic technique. jd3 13:34 Lab(s) recollected, by me, sent to lab. iw 14:36 Bb Add On Sent. kc6 15:51 Felton Pickett MD is Referral Physician. rt 19:50 No provider procedures requiring assistance completed. IV discontinued, intact, ll3 bleeding controlled, No redness/swelling at site. Pressure dressing applied. Administered Medications: No medications were administered Medication: 12:19 VIS not applicable for this client. jd3 Outcome: 15:52 Discharge ordered by MD. rt 19:50 Discharged to home ambulatory. ll3 19:50 Condition: stable 19:50 Discharge instructions given to patient, family, Instructed on discharge instructions, follow up and referral plans. Demonstrated understanding of instructions, follow-up care. 19:50 Patient left the ED. ll3 Signatures: Татьяна Garcia, RN Sandhya Naqvi rg4 David Bragg RN RN jd3 Chiqui Caballero RN RN ll1 Phillip Welch RN RN ll3 Deirdre Lozano RN RN kc6 Israel Smith MD MD rt Corrections: (The following items were deleted from the chart) 12:58 12:04 TYPE AND SCREEN+[email or web address] drawn and sent. kc6 EDMS
[2022-02-01] MEDS ORDERED: NA CHLORIDE 0.9% 250 ML ONE (16:15)
[2022-02-01 16:41] LABS: Anisocytosis 2+; Blood Morphology Comment NOTED (NOT SEEN); Platelet Estimate ADEQ; Poikilocytosis 2+; White Blood Cell Scan OK (OK)
[2022-02-01 20:23] VITALS: TEMP 98.4
[2022-02-01 20:24] VITALS: BP 117/66; O2SAT 98
== END 2022-02-01 19:50 | disposition home or self-care (01) ==
LOC: ER 11:11
PROC: 30233N1 Transfusion of Nonautologous Red Blood Cells into Peripheral Vein, Percutaneous Approach (ICD-10-PCS; principal; 2022-02-01)
DX: D64.9 Anemia, unspecified (principal); F17.210 Nicotine dependence, cigarettes, uncomplicated
CPT/HCPCS: 85025; 36415; 86900; 86850; 86901; 80053; 99284; 36430; P9016; J7050; J7030